=== PATIENT | female | born 1965 | race African-American/Black ===

== ENCOUNTER 2018-01-01 09:59 | Inpatient (IN) | payer MEDICARE, MEDICAID ==
[~2018-01-01] VITALS: Ht 175.3 cm; Wt 75.2 kg
[2018-01-01] MEDS ORDERED: SODIUM CHLORIDE 0.9% 1,000 ML IV ONE ×2 (10:28)
[2018-01-01] MEDS ORDERED: InsuLIN REG 1unit/0.01ml Soln (100units/ml) IV ONE (10:30)
[2018-01-01 10:54] LABS: Urine Bacteria NONE SEEN /hpf (None Seen); Urine Blood TRACE /uL (Negative); Urine WBC 4 /hpf (0 - 5)
[2018-01-01 11:48] LABS: Basophils # (auto) 0 uL; Basophils % (auto) 0.2 % (0.0-2.0); Eosinophils # (auto) 0 uL; Eosinophils % (auto) 0.4 % (0.0-7.0); Hematocrit 36.3 % (36.0-46.0); Hemoglobin 11.9 g/dL (12.2-16.2); Lymphocytes # (auto) 0.6 uL; Lymphocytes % (auto) 16.3 % (10.0-50.0); Mean Corpuscular Hemoglobin 30.6 pg (28.0-32.0); Mean Corpuscular Hgb Conc. 32.8 g/dL (32.0-36.0); Mean Corpuscular Volume 93.3 fL (80.0-100.0); Monocytes # (auto) 0.1 uL; Monocytes % (auto) 3.2 % (0.0-12.0); Neutrophils # (auto) 2.9 uL; Neutrophils % (auto) 79.9 % (37.0-80.0); Platelet Count (auto) 192 10^3/uL (140-450); Red Blood Cells 3.89 10^6/uL (4.0-5.20); White Blood Cell 3.7 10^3/uL (4.4-10.8)
[2018-01-01 11:55] LABS: Red Cell Distribution Width 20.8 % (11.8-14.3)
[2018-01-01 12:03] LABS: INR 0.99 (0.9-1.15); Prothrombin Time 10.6 sec (9.27-12.13)
[2018-01-01 12:22] LABS: Albumin 2.9 g/dL (3.4-5.0); BUN/Creatinine Ratio 17.1; Calcium 10.4 mg/dL (8.5-10.1)
[2018-01-01 12:29] LABS: Bilirubin, Total 0.4 mg/dL (0.2-1.0); Total Protein 6.6 g/dL (6.4-8.2)
[2018-01-01] MEDS ORDERED: InsuLIN R (HUMAN) 100 UNITS in SODIUM CHL 0.9% 99 ML IV SCH (12:35)
[2018-01-01] MEDS ORDERED: TEMAZEPAM 15 MG CAP PO PRN (12:45)
[2018-01-01] MEDS ORDERED: MORPHINE SULFATE 4 MG/ML SYR/VIAL IV PRN ×2 (12:45)
[2018-01-01] MEDS ORDERED: ENOXAPARIN SOD 60 MG/0.6 ML SYRINGE SC ONE (12:45)
[2018-01-01] MEDS ORDERED: LORazepam 0.5 MG TAB PO PRN (12:45)
[2018-01-01] MEDS ORDERED: HYDROcodone-ACET 5/325MG TAB PO PRN (12:45)
[2018-01-01] MEDS ORDERED: DEXTROSE (50%) 50ML SYRG IV PRN ×2 (12:45)
[2018-01-01] MEDS: SOD CHL 0.9%/ KCL 20MEQ 1,000 ML IV SCH ×2 (12:45→21:05)
[2018-01-01] MEDS ORDERED: ONDANSETRON HCL 4 MG/2 ML VIAL IV PRN (12:45)
[2018-01-01] MEDS ORDERED: NITROGLYCERIN 0.4 MG SL TAB SL PRN (12:45)
[2018-01-01] MEDS ORDERED: ACETAMINOPHEN 500 MG TAB PO PRN (12:45)
[2018-01-01] MEDS ORDERED: POTASSIUM CHL 20 Meq TABLET PO ONE (12:45)
[2018-01-01 13:24] LABS: Amylase 32 U/L (25-115); Lipase 172 U/L (73-393)
[2018-01-01] MEDS: ACCU-CHEK COMFORT CURVE STRIP VI SCH ×7 (13:30→22:39)
[2018-01-01 15:28] LABS: Lactic Acid w/Reflex 2.3 mmol/L (0.4-2.0)
[2018-01-02] MEDS: ACCU-CHEK COMFORT CURVE STRIP VI SCH ×10 (00:08→17:51)
[2018-01-02] MEDS ORDERED: InsuLIN R (HUMAN) 100 UNITS in SODIUM CHL 0.9% 99 ML IV SCH (01:38)
[2018-01-02] MEDS: SOD CHL 0.9%/ KCL 20MEQ 1,000 ML IV SCH ×3 (05:06→22:50)
[2018-01-02] MEDS: PANTOPRAZOLE 40 MG TAB PO SCH (09:56)
[2018-01-02 10:19] LABS: Basophils # (auto) 0 uL; Basophils % (auto) 0.3 % (0.0-2.0); Eosinophils # (auto) 0 uL; Eosinophils % (auto) 0.9 % (0.0-7.0); Hematocrit 35.1 % (36.0-46.0); Hemoglobin 11.5 g/dL (12.2-16.2); Lymphocytes # (auto) 1.3 uL; Mean Corpuscular Hemoglobin 29.7 pg (28.0-32.0); Mean Corpuscular Hgb Conc. 32.9 g/dL (32.0-36.0); Mean Corpuscular Volume 90.4 fL (80.0-100.0); Monocytes # (auto) 0.3 uL; Monocytes % (auto) 6.8 % (0.0-12.0); Neutrophils # (auto) 3.4 uL; Platelet Count (auto) 227 10^3/uL (140-450); Red Blood Cells 3.88 10^6/uL (4.0-5.20); White Blood Cell 5.2 10^3/uL (4.4-10.8)
[2018-01-02 10:21] LABS: Red Cell Distribution Width 21.3 % (11.8-14.3)
[2018-01-02 10:29] LABS: Albumin 2.9 g/dL (3.4-5.0); BUN/Creatinine Ratio 23.1; Calcium 10.6 mg/dL (8.5-10.1); Potassium 3.4 mmol/L (3.5-5.1)
[2018-01-02 10:32] LABS: Bilirubin, Total 0.5 mg/dL (0.2-1.0); Total Protein 6.4 g/dL (6.4-8.2)
[2018-01-02] MEDS ORDERED: INSULIN NPH Isophane (HUMAN) 1unit/0.01ml Susp(100units/ml) SC ONE (11:30)
[2018-01-02] MEDS ORDERED: DEXTROSE (50%) 50ML SYRG IV PRN (11:30)
[2018-01-02] MEDS: InsuLIN REG 1unit/0.01ml Soln (100units/ml) SC SCH ×3 (11:57→22:00)
[2018-01-02 12:37] LABS: Free T3 1.84 pg/mL (2.3-4.2); Free T4 (Free Thyroxine) 1.17 ng/dL (0.89-1.76)
[2018-01-02] MEDS ORDERED: CARV3.1240 PO (14:43)
[2018-01-02] MEDS ORDERED: CLON0.2D6 PO (14:43)
[2018-01-02] MEDS ORDERED: ATO40T PO (14:43)
[2018-01-02] MEDS ORDERED: HYDR-4296 PO (14:43)
[2018-01-02] MEDS ORDERED: METO-158 PO (14:43)
[2018-01-02] MEDS ORDERED: FERR-20 PO (14:43)
[2018-01-02] MEDS ORDERED: ASPI81TA27 PO (14:43)
[2018-01-02] MEDS ORDERED: amLODIPine BESYLATE 5 MG TAB PO ONE (15:00)
[2018-01-02] MEDS ORDERED: hydrALAZINE HCL 25 MG TAB PO ONE (15:00)
[2018-01-02 15:24] VITALS: BP 165/105
[2018-01-02 17:00] VITALS: BP 168/93
[2018-01-02] MEDS: cloNIDine HCL 0.1 MG TAB PO PRN (17:53)
[2018-01-02 20:00] VITALS: BP 144/91
[2018-01-02 21:56] VITALS: BP 144/91
[2018-01-02] MEDS: hydrALAZINE HCL 25 MG TAB PO SCH (22:20)
[2018-01-02] MEDS: CARVEDILOL 3.125 MG TAB PO SCH (22:21)
[2018-01-03] MEDS: ACCU-CHEK COMFORT CURVE STRIP VI SCH ×5 (00:35→22:00)
[2018-01-03 05:32] VITALS: BP 139/92
[2018-01-03 07:06] LABS: Basophils # (auto) 0 uL; Basophils % (auto) 0.4 % (0.0-2.0); Eosinophils # (auto) 0 uL; Eosinophils % (auto) 1.1 % (0.0-7.0); Hematocrit 31.9 % (36.0-46.0); Hemoglobin 10.8 g/dL (12.2-16.2); Lymphocytes # (auto) 1.2 uL; Lymphocytes % (auto) 27.4 % (10.0-50.0); Mean Corpuscular Hemoglobin 30.7 pg (28.0-32.0); Mean Corpuscular Hgb Conc. 33.9 g/dL (32.0-36.0); Mean Corpuscular Volume 90.6 fL (80.0-100.0); Monocytes # (auto) 0.4 uL; Monocytes % (auto) 8.9 % (0.0-12.0); Neutrophils # (auto) 2.7 uL; Neutrophils % (auto) 62.2 % (37.0-80.0); Platelet Count (auto) 212 10^3/uL (140-450); Red Blood Cells 3.52 10^6/uL (4.0-5.20); White Blood Cell 4.4 10^3/uL (4.4-10.8)
[2018-01-03] MEDS: InsuLIN REG 1unit/0.01ml Soln (100units/ml) SC SCH ×4 (07:07→22:00)
[2018-01-03] MEDS: hydrALAZINE HCL 25 MG TAB PO SCH ×3 (07:07→22:57)
[2018-01-03 07:23] LABS: Albumin 2.8 g/dL (3.4-5.0); BUN/Creatinine Ratio 23.9; Bilirubin, Direct 0.1 mg/dL (0-0.2); Bilirubin, Total 0.5 mg/dL (0.2-1.0); Magnesium 2.1 mg/dL (1.6-2.6); Total Protein 6.3 g/dL (6.4-8.2)
[2018-01-03 07:24] LABS: Red Cell Distribution Width 21.5 % (11.8-14.3)
[2018-01-03] MEDS: SOD CHL 0.9%/ KCL 20MEQ 1,000 ML IV SCH ×3 (07:40→23:23)
[2018-01-03] MEDS: cloNIDine HCL 0.1 MG TAB PO PRN ×2 (07:41→17:43)
[2018-01-03 09:00] VITALS: BP 176/105
[2018-01-03] MEDS: amLODIPine BESYLATE 5 MG TAB PO SCH (09:41)
[2018-01-03] MEDS: ASPirin 81 mg TAB PO SCH (09:41)
[2018-01-03] MEDS: CARVEDILOL 3.125 MG TAB PO SCH (09:41)
[2018-01-03] MEDS: PANTOPRAZOLE 40 MG TAB PO SCH (09:41)
[2018-01-03] MEDS ORDERED: CARVEDILOL 3.125 MG TAB PO SCH (10:00)
[2018-01-03] MEDS: POTASSIUM CHL 20 Meq TABLET PO SCH ×2 (11:36→22:55)
[2018-01-03] MEDS: LOSARTAN POTASSIUM 50 MG TAB PO SCH ×2 (11:37→22:56)
[2018-01-03 13:00] VITALS: BP 157/101
[2018-01-03 16:59] VITALS: BP 162/103
[2018-01-03 22:00] VITALS: BP 181/101
[2018-01-03] MEDS ORDERED: METOPROLOL TARTRATE 25 MG TAB PO SCH (22:00)
[2018-01-03] MEDS: ATORVASTATIN 20 MG TAB PO SCH (22:56)
[2018-01-04 05:00] VITALS: BP 174/108
[2018-01-04] MEDS: cloNIDine HCL 0.1 MG TAB PO PRN ×2 (05:51→06:11)
[2018-01-04] MEDS: hydrALAZINE HCL 25 MG TAB PO SCH ×3 (06:12→22:11)
[2018-01-04] MEDS: ACCU-CHEK COMFORT CURVE STRIP VI SCH ×4 (07:00→22:00)
[2018-01-04] MEDS: InsuLIN REG 1unit/0.01ml Soln (100units/ml) SC SCH ×4 (07:01→22:00)
[2018-01-04 07:21] LABS: Basophils # (auto) 0 uL; Basophils % (auto) 0.4 % (0.0-2.0); Eosinophils # (auto) 0.1 uL; Eosinophils % (auto) 1.6 % (0.0-7.0); Hematocrit 30.9 % (36.0-46.0); Hemoglobin 10.3 g/dL (12.2-16.2); Lymphocytes # (auto) 1.1 uL; Lymphocytes % (auto) 31.6 % (10.0-50.0); Mean Corpuscular Hemoglobin 30.4 pg (28.0-32.0); Mean Corpuscular Hgb Conc. 33.4 g/dL (32.0-36.0); Monocytes # (auto) 0.4 uL; Monocytes % (auto) 10.7 % (0.0-12.0); Neutrophils # (auto) 1.9 uL; Neutrophils % (auto) 55.7 % (37.0-80.0); Nucleated Red Blood Cells % 0.1 %; Platelet Count (auto) 201 10^3/uL (140-450); Red Blood Cells 3.39 10^6/uL (4.0-5.20); White Blood Cell 3.4 10^3/uL (4.4-10.8)
[2018-01-04 07:25] LABS: Red Cell Distribution Width 21.9 % (11.8-14.3)
[2018-01-04 07:36] LABS: BUN/Creatinine Ratio 21.2; Calcium 10.2 mg/dL (8.5-10.1); Magnesium 1.9 mg/dL (1.6-2.6); Potassium 3.9 mmol/L (3.5-5.1)
[2018-01-04] MEDS ORDERED: LABETALOL HCL 200 MG TAB PO SCH (08:30)
[2018-01-04] MEDS ORDERED: cloNIDine 0.2 mg/24hr 7DAY PATCH TD SCH (08:30)
[2018-01-04 09:00] VITALS: BP 155/96
[2018-01-04] MEDS: SOD CHL 0.9%/ KCL 20MEQ 1,000 ML IV SCH ×2 (09:24→15:45)
[2018-01-04] MEDS: METOPROLOL TARTRATE 25 MG TAB PO SCH ×2 (09:26→22:13)
[2018-01-04] MEDS: amLODIPine BESYLATE 5 MG TAB PO SCH (09:27)
[2018-01-04] MEDS: LOSARTAN POTASSIUM 50 MG TAB PO SCH ×2 (09:27→22:12)
[2018-01-04] MEDS: PANTOPRAZOLE 40 MG TAB PO SCH (09:27)
[2018-01-04] MEDS: ASPirin 81 mg TAB PO SCH (09:28)
[2018-01-04 13:00] VITALS: BP 185/109
[2018-01-04] MEDS ORDERED: MINOXIDIL 10 MG TAB PO ONE (13:30)
[2018-01-04 17:00] VITALS: BP 138/87
[2018-01-04 21:23] VITALS: BP 121/74
[2018-01-04] MEDS ORDERED: MINOXIDIL 10 MG TAB PO SCH (22:00)
[2018-01-04] MEDS: ATORVASTATIN 20 MG TAB PO SCH (22:12)
[2018-01-05] VITALS (7 sets, daily range): BP systolic 93–117; BP diastolic 57–79
[2018-01-05] MEDS: SOD CHL 0.9%/ KCL 20MEQ 1,000 ML IV SCH ×3 (00:05→17:08)
[2018-01-05] MEDS: hydrALAZINE HCL 25 MG TAB PO SCH ×3 (06:00→22:00)
[2018-01-05] MEDS: ACCU-CHEK COMFORT CURVE STRIP VI SCH ×4 (07:05→22:06)
[2018-01-05] MEDS: InsuLIN REG 1unit/0.01ml Soln (100units/ml) SC SCH ×4 (07:06→22:06)
[2018-01-05] MEDS ORDERED: MINOXIDIL 10 MG TAB PO SCH (10:00)
[2018-01-05] MEDS: LOSARTAN POTASSIUM 50 MG TAB PO SCH ×2 (10:00→22:00)
[2018-01-05] MEDS: METOPROLOL TARTRATE 25 MG TAB PO SCH ×2 (10:00→22:00)
[2018-01-05] MEDS: amLODIPine BESYLATE 5 MG TAB PO SCH (10:00)
[2018-01-05] MEDS: PANTOPRAZOLE 40 MG TAB PO SCH (10:00)
[2018-01-05] MEDS: ASPirin 81 mg TAB PO SCH (10:00)
[2018-01-05 10:43] LABS: Basophils # (auto) 0 uL; Basophils % (auto) 0.7 % (0.0-2.0); Eosinophils # (auto) 0 uL; Eosinophils % (auto) 1.1 % (0.0-7.0); Hemoglobin 10.6 g/dL (12.2-16.2); Lymphocytes # (auto) 1.1 uL; Lymphocytes % (auto) 27.5 % (10.0-50.0); Mean Corpuscular Hemoglobin 30.2 pg (28.0-32.0); Mean Corpuscular Hgb Conc. 33.1 g/dL (32.0-36.0); Monocytes # (auto) 0.4 uL; Monocytes % (auto) 10.4 % (0.0-12.0); Neutrophils # (auto) 2.4 uL; Neutrophils % (auto) 60.3 % (37.0-80.0); Nucleated Red Blood Cells % 0.1 %; Platelet Count (auto) 229 10^3/uL (140-450); Red Blood Cells 3.51 10^6/uL (4.0-5.20)
[2018-01-05 11:00] LABS: Potassium 4.5 mmol/L (3.5-5.1)
[2018-01-05] MEDS ORDERED: ADENOSINE 62 MG in GIVE UN-DILUTED 0 ML IV ONE (11:00)
[2018-01-05 11:04] LABS: BUN/Creatinine Ratio 19.5
[2018-01-05] MEDS: metFORMIN HYDROCHLORIDE 500 MG TAB PO SCH ×2 (18:09→18:53)
[2018-01-05] MEDS: glipiZIDE 5 MG TAB PO SCH (18:09)
[2018-01-05] MEDS: ATORVASTATIN 20 MG TAB PO SCH (22:42)
[2018-01-06] MEDS: SOD CHL 0.9%/ KCL 20MEQ 1,000 ML IV SCH ×2 (01:05→09:25)
[2018-01-06 05:00] VITALS: BP 109/61
[2018-01-06] MEDS: hydrALAZINE HCL 25 MG TAB PO SCH ×2 (06:00→14:00)
[2018-01-06] MEDS: ACCU-CHEK COMFORT CURVE STRIP VI SCH ×2 (07:26→11:30)
[2018-01-06] MEDS: InsuLIN REG 1unit/0.01ml Soln (100units/ml) SC SCH ×2 (07:27→11:30)
[2018-01-06] MEDS: metFORMIN HYDROCHLORIDE 500 MG TAB PO SCH (07:28)
[2018-01-06] MEDS: glipiZIDE 5 MG TAB PO SCH (07:28)
[2018-01-06 08:22] LABS: Basophils # (auto) 0 uL; Basophils % (auto) 0.5 % (0.0-2.0); Eosinophils # (auto) 0 uL; Eosinophils % (auto) 0.9 % (0.0-7.0); Hematocrit 32.7 % (36.0-46.0); Hemoglobin 10.7 g/dL (12.2-16.2); Lymphocytes # (auto) 1.2 uL; Lymphocytes % (auto) 30.8 % (10.0-50.0); Mean Corpuscular Hemoglobin 30.5 pg (28.0-32.0); Mean Corpuscular Hgb Conc. 32.7 g/dL (32.0-36.0); Mean Corpuscular Volume 93.1 fL (80.0-100.0); Monocytes # (auto) 0.4 uL; Monocytes % (auto) 10.2 % (0.0-12.0); Neutrophils # (auto) 2.3 uL; Neutrophils % (auto) 57.6 % (37.0-80.0); Platelet Count (auto) 228 10^3/uL (140-450); Red Blood Cells 3.51 10^6/uL (4.0-5.20)
[2018-01-06 08:27] LABS: Red Cell Distribution Width 22.2 % (11.8-14.3)
[2018-01-06 08:43] LABS: BUN/Creatinine Ratio 20.4; Potassium 4.7 mmol/L (3.5-5.1)
[2018-01-06 09:00] VITALS: BP 132/81
[2018-01-06] MEDS: amLODIPine BESYLATE 5 MG TAB PO SCH (10:05)
[2018-01-06] MEDS: ASPirin 81 mg TAB PO SCH (10:05)
[2018-01-06] MEDS: LOSARTAN POTASSIUM 50 MG TAB PO SCH (10:06)
[2018-01-06] MEDS: PANTOPRAZOLE 40 MG TAB PO SCH (10:07)
[2018-01-06] MEDS: METOPROLOL TARTRATE 25 MG TAB PO SCH (10:07)
[2018-01-06 11:19] VITALS: BP 132/81
[2018-01-06 11:43] VITALS: BP 132/81
[2018-01-06 13:00] VITALS: BP 122/67
== END 2018-01-06 13:45 | disposition home or self-care (01) | DRG 280 ==
LOC: ER 09:59 → TELE 10:00 → TELE-EAST 01-02 13:52
PROVIDERS: ADMIT Internal Medicine; ATTEND Internal Medicine Pulmonary Disease
DX: I21.4 Non-ST elevation (NSTEMI) myocardial infarction (principal); E11.00 Type 2 diabetes mellitus with hyperosmolarity without nonketotic hyperglycemic-hyperosmolar coma (NKHHC); N17.0 Acute kidney failure with tubular necrosis; E87.1 Hypo-osmolality and hyponatremia; E44.0 Moderate protein-calorie malnutrition; I13.0 Hypertensive heart and chronic kidney disease with heart failure and stage 1 through stage 4 chronic kidney disease, or unspecified chronic kidney disease; E87.6 Hypokalemia; E11.22 Type 2 diabetes mellitus with diabetic chronic kidney disease; N18.2 Chronic kidney disease, stage 2 (mild); D63.8 Anemia in other chronic diseases classified elsewhere; I12.9 Hypertensive chronic kidney disease with stage 1 through stage 4 chronic kidney disease, or unspecified chronic kidney disease; E11.65 Type 2 diabetes mellitus with hyperglycemia; D25.9 Leiomyoma of uterus, unspecified; E21.3 Hyperparathyroidism, unspecified; I50.9 Heart failure, unspecified; R56.9 Unspecified convulsions; Z86.73 Personal history of transient ischemic attack (TIA), and cerebral infarction without residual deficits; Z83.3 Family history of diabetes mellitus; Z68.24 Body mass index [BMI] 24.0-24.9, adult
CPT/HCPCS: 36415; 71045; 74176; 78452; 80048; 80053; 80061; 80076; 81001; 81025; 82150; 82550; 82553; 82962; 83036; 83605; 83690; 83735; 83835; 83880; 83970; 84439; 84443; 84481; 84484; 85025; 85610; 85730; 87040; 93306; 96361; 96365; 96375; J0153; J1815

== ENCOUNTER 2018-06-16 12:55 | Inpatient (IN) | payer MEDICARE, MEDICAID | END 2018-06-19 22:42 | disposition home or self-care (01) | LOC: TELE-EAST 06-18 14:18 → ER 12:55 → TELE 17:10 | DX: I16.9 Hypertensive crisis, unspecified (principal); E87.1 Hypo-osmolality and hyponatremia; E11.65 Type 2 diabetes mellitus with hyperglycemia; E87.6 Hypokalemia; E87.8 Other disorders of electrolyte and fluid balance, not elsewhere classified; D63.8 Anemia in other chronic diseases classified elsewhere; I25.10 Atherosclerotic heart disease of native coronary artery without angina pectoris ==

== ENCOUNTER 2018-06-30 10:38 | Inpatient (IN) | payer MEDICARE, MEDICAID | END 2018-07-04 20:01 | disposition home or self-care (01) | LOC: EAST 07-03 14:29 → TELE-EAST 07-03 14:30 → ER 10:38 → TELE 13:03 → TELE-EAST 17:09 | DX: I16.0 Hypertensive urgency (principal); D64.9 Anemia, unspecified; E11.65 Type 2 diabetes mellitus with hyperglycemia; E78.5 Hyperlipidemia, unspecified; E03.9 Hypothyroidism, unspecified ==

== ENCOUNTER 2018-08-18 13:07 | Emergency (ER) | payer MEDICARE, MEDICAID ==
[~2018-08-18] VITALS: Ht 175.3 cm; Wt 66.2 kg
[~2018-08-18 13:07] MED LIST: ALIS150T11 PO; AMLO10TA12 PO; ATOR1TAB PO; CARV3.1240 PO; CLON0.1T PO; HYDR-4296 PO; METF-370 PO
[2018-08-18 14:02] LABS: Basophils # (auto) 0 uL; Basophils % (auto) 0.7 % (0.0-2.0); Eosinophils # (auto) 0.1 uL; Eosinophils % (auto) 2.2 % (0.0-7.0); Hematocrit 30.7 % (36.0-46.0); Hemoglobin 9.9 g/dL (12.2-16.2); Lymphocytes # (auto) 0.7 uL; Lymphocytes % (auto) 24.2 % (10.0-50.0); Mean Corpuscular Hemoglobin 27.1 pg (28.0-32.0); Mean Corpuscular Hgb Conc. 32.2 g/dL (32.0-36.0); Mean Corpuscular Volume 84.2 fL (80.0-100.0); Monocytes # (auto) 0.3 uL; Monocytes % (auto) 10.1 % (0.0-12.0); Neutrophils # (auto) 1.9 uL; Neutrophils % (auto) 62.8 % (37.0-80.0); Platelet Count (auto) 160 10^3/uL (140-450); Red Blood Cells 3.64 10^6/uL (4.0-5.20); Red Cell Distribution Width 16.8 % (11.8-14.3)
[2018-08-18 14:13] LABS: Albumin 3.5 g/dL (3.4-5.0); Anion Gap 7 (5-15); Blood Urea Nitrogen 19 mg/dL (7-18); Calcium 12.3 mg/dL (8.5-10.1); Carbon Dioxide 27 mmol/L (21-32); Chloride 105 mmol/L (98-107); Glucose 218 mg/dL (74-106); Potassium 3.1 mmol/L (3.5-5.1); Sodium 139 mmol/L (136-145)
[2018-08-18 14:18] LABS: Alanine Aminotransferase 26 U/L (13-56); Alkaline Phosphatase 105 U/L (45-117); Aspartate Aminotransferase 18 U/L (15-37); BUN/Creatinine Ratio 13.9; Bilirubin, Total 0.3 mg/dL (0.2-1.0); GFR African American 52 mL/min; GFR Non-African American 43 mL/min; Total Protein 7.5 g/dL (6.4-8.2)
[2018-08-18] MEDS ORDERED: cloNIDine HCL 0.1 MG TAB ONE (16:56)
[2018-08-18] MEDS ORDERED: cloNIDine HCL 0.1 MG TAB PO ONE (17:00)
[2018-08-18 17:29] VITALS: BP 170/90
== END 2018-08-18 17:39 | disposition home or self-care (01) ==
LOC: ER 13:11
DX: I16.0 Hypertensive urgency (principal); E11.9 Type 2 diabetes mellitus without complications; E78.5 Hyperlipidemia, unspecified; I10 Essential (primary) hypertension; E07.9 Disorder of thyroid, unspecified; Z79.84 Long term (current) use of oral hypoglycemic drugs; Z79.899 Other long term (current) drug therapy; Z86.73 Personal history of transient ischemic attack (TIA), and cerebral infarction without residual deficits
CPT/HCPCS: 36415; 80053; 82962; 84484; 85025; 93005

== ENCOUNTER 2018-10-30 17:16 | Inpatient (IN) | payer OTHER, MEDICAID ==
[~2018-10-30] VITALS: Ht 175.3 cm; Wt 72.0 kg
[~2018-10-30 17:16] MED LIST changes: +ALIS150T PO; -ALIS150T11 PO; -AMLO10TA12 PO; +AMLO10TA13 PO
[2018-10-30] MEDS ORDERED: cloNIDine HCL 0.1 MG TAB PO ONE (17:30)
[2018-10-30 18:11] LABS: Basophils # (auto) 0 uL; Eosinophils # (auto) 0 uL; Lymphocytes # (auto) 0.9 uL; Monocytes # (auto) 0.4 uL; Monocytes % (auto) 12.3 % (0.0-12.0)
[2018-10-30 18:14] LABS: Basophils % (auto) 0.3 % (0.0-2.0); Eosinophils % (auto) 1.3 % (0.0-7.0); Hematocrit 34.3 % (36.0-46.0); Lymphocytes % (auto) 26.9 % (10.0-50.0); Mean Corpuscular Hemoglobin 26.5 pg (28.0-32.0); Mean Corpuscular Volume 82.8 fL (80.0-100.0); Neutrophils % (auto) 59.2 % (37.0-80.0); Nucleated Red Blood Cells % 0.2 %; Platelet Count (auto) 167 10^3/uL (140-450); Red Blood Cells 4.15 10^6/uL (4.0-5.20); Red Cell Distribution Width 19.4 % (11.8-14.3); White Blood Cell 3.5 10^3/uL (4.4-10.8)
[2018-10-30 18:30] LABS: Albumin 3.3 g/dL (3.4-5.0); Calcium 12.4 mg/dL (8.5-10.1); Potassium 3.3 mmol/L (3.5-5.1)
[2018-10-30 18:34] LABS: BUN/Creatinine Ratio 12.3; Bilirubin, Total 0.4 mg/dL (0.2-1.0); Total Protein 7.7 g/dL (6.4-8.2)
[2018-10-30] MEDS ORDERED: InsuLIN REG 1unit/0.01ml Soln (100units/ml) SC ONE (22:00)
[2018-10-30] MEDS ORDERED: POTASSIUM CHL 20 Meq TABLET PO ONE (23:00)
[2018-10-30] MEDS ORDERED: MORPHINE SULF INJ 2 MG/ML SYRINGE 1ML IV PRN ×3 (23:15→23:45)
[2018-10-30] MEDS ORDERED: NITROGLYCERIN 0.4 MG SL TAB SL PRN (23:15)
[2018-10-30] MEDS ORDERED: ONDANSETRON HCL 4 MG/2 ML VIAL IV PRN (23:30)
[2018-10-30] MEDS ORDERED: DEXTROSE (50%) 50ML SYRG IV PRN (23:45)
[2018-10-30 23:47] VITALS: BP 140/93
[2018-10-31] MEDS ORDERED: InsuLIN REG 1unit/0.01ml Soln (100units/ml) SC SCH ×3 (07:00→22:00)
[2018-10-31 07:20] LABS: Albumin 2.8 g/dL (3.4-5.0); Calcium 11.3 mg/dL (8.5-10.1); Potassium 3.1 mmol/L (3.5-5.1)
[2018-10-31 07:25] LABS: Bilirubin, Total 0.5 mg/dL (0.2-1.0); Total Protein 6.3 g/dL (6.4-8.2)
[2018-10-31 07:32] LABS: Basophils # (auto) 0 uL; Monocytes # (auto) 0.3 uL; Red Cell Distribution Width 19.3 % (11.8-14.3); White Blood Cell 3.8 10^3/uL (4.4-10.8)
[2018-10-31 07:34] LABS: Basophils % (auto) 0.8 % (0.0-2.0); Eosinophils # (auto) 0 uL; Hematocrit 31.9 % (36.0-46.0); Hemoglobin 10.2 g/dL (12.2-16.2); Lymphocytes # (auto) 0.9 uL; Lymphocytes % (auto) 23.2 % (10.0-50.0); Mean Corpuscular Hemoglobin 26.3 pg (28.0-32.0); Mean Corpuscular Hgb Conc. 32.1 g/dL (32.0-36.0); Mean Corpuscular Volume 81.9 fL (80.0-100.0); Monocytes % (auto) 8.6 % (0.0-12.0); Neutrophils # (auto) 2.6 uL; Neutrophils % (auto) 66.4 % (37.0-80.0); Platelet Count (auto) 158 10^3/uL (140-450); Red Blood Cells 3.89 10^6/uL (4.0-5.20)
[2018-10-31] MEDS: ACCU-CHEK COMFORT CURVE STRIP VI SCH ×4 (07:39→22:55)
[2018-10-31] MEDS: InsuLIN REG 1unit/0.01ml Soln (100units/ml) SC SCH ×4 (08:16→22:54)
[2018-10-31 09:00] VITALS: BP 160/102
[2018-10-31] MEDS: CARVEDILOL 3.125 MG TAB PO SCH (10:53)
[2018-10-31] MEDS: TRIAMTERENE/HCTZ 75/50MG TABLET PO SCH (10:53)
[2018-10-31] MEDS: amLODIPine BESYLATE 5 MG TAB PO SCH (10:54)
[2018-10-31] MEDS: hydrALAZINE HCL 20 MG/ML VL IV PRN ×2 (12:45→23:02)
[2018-10-31 13:17] VITALS: BP 164/99
[2018-10-31 13:40] VITALS: BP 158/91
[2018-10-31] MEDS ORDERED: SITA100T7 PO (13:44)
[2018-10-31] MEDS ORDERED: TRIATAB3 PO (13:44)
[2018-10-31] MEDS ORDERED: CAR125T PO (13:44)
[2018-10-31] MEDS ORDERED: METF-372 PO (13:49)
[2018-10-31 16:38] VITALS: BP 135/80
[2018-10-31 22:00] VITALS: BP 164/102
[2018-10-31] MEDS: ATORVASTATIN 20 MG TAB PO SCH (22:54)
[2018-11-01] MEDS: ALBUTEROL SULF 2.5 MG/0.5ML(0.5%) NEB SOLN NEB PRN ×2 (03:48→08:49)
[2018-11-01 05:00] VITALS: BP 153/88
[2018-11-01] MEDS: InsuLIN REG 1unit/0.01ml Soln (100units/ml) SC SCH ×5 (06:51→22:47)
[2018-11-01] MEDS: ACCU-CHEK COMFORT CURVE STRIP VI SCH ×4 (06:51→22:47)
[2018-11-01 08:28] VITALS: BP 167/105
[2018-11-01] MEDS: CARVEDILOL 3.125 MG TAB PO SCH (09:40)
[2018-11-01] MEDS: TRIAMTERENE/HCTZ 75/50MG TABLET PO SCH (09:40)
[2018-11-01] MEDS: amLODIPine BESYLATE 5 MG TAB PO SCH (09:41)
[2018-11-01 12:00] VITALS: BP 178/102
[2018-11-01] MEDS: hydrALAZINE HCL 20 MG/ML VL IV PRN (12:37)
[2018-11-01 13:00] VITALS: BP 194/113
[2018-11-01 17:22] VITALS: BP 153/87
[2018-11-01 22:00] VITALS: BP 149/95
[2018-11-01] MEDS: ATORVASTATIN 20 MG TAB PO SCH (22:46)
[2018-11-01] MEDS: ACETAMINOPHEN 500 MG TAB PO PRN (22:48)
[2018-11-02] VITALS (7 sets, daily range): BP systolic 133–189; BP diastolic 76–109
[2018-11-02] MEDS: ACCU-CHEK COMFORT CURVE STRIP VI SCH ×4 (06:19→21:42)
[2018-11-02] MEDS: InsuLIN REG 1unit/0.01ml Soln (100units/ml) SC SCH ×4 (06:19→21:42)
[2018-11-02] MEDS: hydrALAZINE HCL 20 MG/ML VL IV PRN ×2 (06:20→12:47)
[2018-11-02] MEDS: TRIAMTERENE/HCTZ 75/50MG TABLET PO SCH (09:30)
[2018-11-02] MEDS: CARVEDILOL 3.125 MG TAB PO SCH (09:30)
[2018-11-02] MEDS: amLODIPine BESYLATE 5 MG TAB PO SCH (09:31)
[2018-11-02] MEDS: ACETAMINOPHEN 500 MG TAB PO PRN (10:18)
[2018-11-02] MEDS: ATORVASTATIN 20 MG TAB PO SCH (21:30)
[2018-11-03] VITALS (8 sets, daily range): BP systolic 139–178; BP diastolic 85–107
[2018-11-03] MEDS: ACCU-CHEK COMFORT CURVE STRIP VI SCH ×4 (06:54→21:18)
[2018-11-03] MEDS: InsuLIN REG 1unit/0.01ml Soln (100units/ml) SC SCH ×4 (06:54→21:18)
[2018-11-03] MEDS: hydrALAZINE HCL 20 MG/ML VL IV PRN ×2 (08:37→22:09)
[2018-11-03] MEDS: CARVEDILOL 12.5 MG TAB PO SCH (09:48)
[2018-11-03] MEDS: amLODIPine BESYLATE 5 MG TAB PO SCH (09:48)
[2018-11-03] MEDS: TRIAMTERENE/HCTZ 75/50MG TABLET PO SCH (09:48)
[2018-11-03] MEDS: ALBUTEROL SULF 2.5 MG/0.5ML(0.5%) NEB SOLN NEB PRN (10:24)
[2018-11-03] MEDS: ATORVASTATIN 20 MG TAB PO SCH (21:18)
[2018-11-04 05:00] VITALS: BP 145/75
[2018-11-04] MEDS: ACCU-CHEK COMFORT CURVE STRIP VI SCH ×2 (06:32→11:30)
[2018-11-04] MEDS: InsuLIN REG 1unit/0.01ml Soln (100units/ml) SC SCH ×2 (06:32→12:14)
[2018-11-04 09:00] VITALS: BP 160/89
[2018-11-04] MEDS: TRIAMTERENE/HCTZ 75/50MG TABLET PO SCH (09:31)
[2018-11-04] MEDS: amLODIPine BESYLATE 5 MG TAB PO SCH (09:32)
[2018-11-04] MEDS: CARVEDILOL 12.5 MG TAB PO SCH (09:33)
[2018-11-04] MEDS: hydrALAZINE HCL 20 MG/ML VL IV PRN (10:54)
[2018-11-04 13:00] VITALS: BP 158/89
[2018-11-04 17:00] VITALS: BP 123/80
== END 2018-11-04 18:30 | disposition home or self-care (01) | DRG 638 ==
LOC: ER 17:16 → TELE 17:17 → TELE-CENTR 10-31 09:51
PROVIDERS: ADMIT Internal Medicine; ATTEND Internal Medicine
DX: E11.65 Type 2 diabetes mellitus with hyperglycemia (principal); I16.9 Hypertensive crisis, unspecified; N18.3 Chronic kidney disease, stage 3 (moderate); G40.909 Epilepsy, unspecified, not intractable, without status epilepticus; D64.9 Anemia, unspecified; E87.6 Hypokalemia; E11.22 Type 2 diabetes mellitus with diabetic chronic kidney disease; E11.40 Type 2 diabetes mellitus with diabetic neuropathy, unspecified; I12.9 Hypertensive chronic kidney disease with stage 1 through stage 4 chronic kidney disease, or unspecified chronic kidney disease; E03.9 Hypothyroidism, unspecified; Z83.49 Family history of other endocrine, nutritional and metabolic diseases; E78.5 Hyperlipidemia, unspecified; I13.10 Hypertensive heart and chronic kidney disease without heart failure, with stage 1 through stage 4 chronic kidney disease, or unspecified chronic kidney disease; Z82.3 Family history of stroke; Z82.49 Family history of ischemic heart disease and other diseases of the circulatory system; Z82.5 Family history of asthma and other chronic lower respiratory diseases; Z83.3 Family history of diabetes mellitus; Z86.73 Personal history of transient ischemic attack (TIA), and cerebral infarction without residual deficits
CPT/HCPCS: 36415; 71045; 80053; 82962; 83735; 84484; 85025; 94640; G0378; J1815

== ENCOUNTER 2019-01-11 17:45 | Inpatient (IN) | payer OTHER, MEDICAID ==
[~2019-01-11] VITALS: Ht 175.3 cm; Wt 87.2 kg
[~2019-01-11 17:45] MED LIST changes: +CAR125T PO; -CARV3.1240 PO; -CLON0.1T PO; -HYDR-4296 PO; -METF-370 PO; +METF-372 PO; +SITA100T7 PO; +TRIATAB3 PO
[2019-01-11] MEDS ORDERED: SODIUM CHLORIDE 0.9% 500 ML IVB ONE (18:14)
[2019-01-11] MEDS ORDERED: LORazepam 2MG/ML-1ML VIAL IV ONE ×2 (18:15→18:30)
[2019-01-11] MEDS ORDERED: LORazepam 2MG/ML-1ML VIAL ONE (18:16)
[2019-01-11] MEDS ORDERED: LEVETIRACETAM INJ 1,000 MG in D5W 5% 100 ML IV ONE (18:30)
[2019-01-11 18:37] LABS: Basophils # (auto) 0 uL; Basophils % (auto) 0.1 % (0.0-2.0); Eosinophils # (auto) 0 uL; Hemoglobin 12.2 g/dL (12.2-16.2); Monocytes # (auto) 0.7 uL
[2019-01-11 18:39] LABS: Eosinophils % (auto) 0.1 % (0.0-7.0); Hematocrit 38.1 % (36.0-46.0); Lymphocytes # (auto) 0.6 uL; Lymphocytes % (auto) 7.2 % (10.0-50.0); Mean Corpuscular Hemoglobin 26.4 pg (28.0-32.0); Mean Corpuscular Volume 82.4 fL (80.0-100.0); Monocytes % (auto) 7.4 % (0.0-12.0); Neutrophils # (auto) 7.6 uL; Neutrophils % (auto) 85.2 % (37.0-80.0); Platelet Count (auto) 213 10^3/uL (140-450); Red Blood Cells 4.62 10^6/uL (4.0-5.20); Red Cell Distribution Width 18.3 % (11.8-14.3); White Blood Cell 8.9 10^3/uL (4.4-10.8)
[2019-01-11 18:52] LABS: Albumin 3.5 g/dL (3.4-5.0); BUN/Creatinine Ratio 12.8; Calcium 12.4 mg/dL (8.5-10.1)
[2019-01-11 18:55] LABS: Bilirubin, Total 0.4 mg/dL (0.2-1.0); Total Protein 8.3 g/dL (6.4-8.2)
[2019-01-11] MEDS ORDERED: LEVETIRACETAM 500 MG/5ML INJ IV ONE (20:44)
[2019-01-11] MEDS ORDERED: hydrALAZINE HCL 20 MG/ML VL IV ONE (20:45)
[2019-01-11] MEDS ORDERED: DEXTROSE (50%) 50ML SYRG IV PRN (22:15)
[2019-01-11] MEDS: SODIUM CHLORIDE 0.9% 1,000 ML IV SCH (23:00)
[2019-01-12] VITALS (46 sets, daily range): BP systolic 57–196; BP diastolic 29–104
[2019-01-12] MEDS ORDERED: LORazepam 2MG/ML-1ML VIAL IV ONE
[2019-01-12 01:12] LABS: Urine Amorphous Crystal FEW /hpf (None Seen); Urine Bacteria FEW /hpf (None Seen); Urine Blood TRACE /uL (Negative); Urine Hyaline Cast FEW /lpf (0 - 2); Urine Specific Gravity 1.015 (1.001-1.035); Urine WBC 3 /hpf (0 - 5)
[2019-01-12] MEDS: hydrALAZINE HCL 20 MG/ML VL IV SCH ×4 (02:40→14:00)
[2019-01-12] MEDS: ONDANSETRON HCL 4 MG/2 ML VIAL IV SCH ×3 (03:45→10:00)
[2019-01-12] MEDS ORDERED: SUCCINYLCHOLINE CHLORIDE 20 MG/ML 10ML VIAL IV ONE ×2 (06:15→06:17)
[2019-01-12] MEDS ORDERED: ETOMIDATE (2MG/ML) 20ML VIAL IV ONE ×2 (06:15→06:18)
[2019-01-12] MEDS ORDERED: cefTRIAXone 1GM/50ML D5W 50 ML IV ONE ×2 (07:04→07:15)
--- NOTE | 2019-01-12 07:19 | NUR ---
ADMIT TRANSPORTED PT FROM ER 12 TO ICU RM 111 WITH RT X2, RN X2. PLACED ON ALL MONITORS, SEIZURE PADS APPLIED.
[2019-01-12] MEDS: InsuLIN REG 1unit/0.01ml Soln (100units/ml) SC SCH ×4 (07:30→21:52)
[2019-01-12] MEDS: ACCU-CHEK COMFORT CURVE STRIP VI SCH ×4 (07:30→21:52)
[2019-01-12] MEDS: amLODIPine BESYLATE 5 MG TAB PO SCH ×2 (08:00→10:00)
[2019-01-12] MEDS: MIDAZOLAM DRIP 50 mg/50mL 50 ML IV SCH (08:00)
--- NOTE | 2019-01-12 08:00 | NUR ---
ASSESS DONE NO EYE OPENING. WITHDRAWS TO PAINFUL STIMULI, POS COUGH REFLEX. CATINA AT 3MM SLUGGISH. VENT SETTINGS ORDERED WITH APPROPRIATE TITRATION OF FIO2. SR/SB ON MONITOR. #18 NG SECURE LT NARE, CLAMPED. BP STABLE, NO PRN'S NECESSARY. DR. JOHNSON IS HERE FOR NEURO CONSULT. LUNGS CLEAR, INTERMITTENTLY COURSE. SKIN IS INTACT.
[2019-01-12] MEDS ORDERED: LORazepam 2MG/ML-1ML VIAL IV PRN (08:30)
[2019-01-12 08:55] LABS: Alcohol, Urine < 3.0 mg/dL (0-5); Amphetamine Screen, Urine NEGATIVE (NEGATIVE); Barbiturate Scree,Urine NEGATIVE (NEGATIVE); Benzodiazephine Screen, Urine NEGATIVE (NEGATIVE); Cannabinoid Screen, Urine NEGATIVE (NEGATIVE); Cocaine Screen, Urine NEGATIVE (NEGATIVE); Opiate Scree,Urine NEGATIVE (NEGATIVE); Phencyclidine Screen, Urine NEGATIVE (NEGATIVE)
--- NOTE | 2019-01-12 09:00 | NUR ---
PT BRADYCARDIC ON MONIOTR, DOWN TO 40. FOUND TO HAVE HAD SMALL EMESIS, BRIGHT GREEN IN COLOR. PLACED TO CONT SUCTION, NO ASPIRATION NOTED. NO CHANGE IN NEURO ASSESSMENT
[2019-01-12] MEDS: FAMOTIDINE (10MG/ML) 2ML VL IV SCH ×2 (10:00→22:09)
[2019-01-12] MEDS: ASPirin 81 mg TAB PO SCH (10:00)
[2019-01-12] MEDS: SODIUM CHLORIDE 0.9% 1,000 ML IV SCH ×2 (10:00→19:00)
[2019-01-12] MEDS: CARVEDILOL 12.5 MG TAB PO SCH ×2 (10:00→22:08)
--- NOTE | 2019-01-12 10:30 | NUR ---
TEMP IS DROPPING. DENIS SWANSON PLACED ON PT.
--- NOTE | 2019-01-12 11:15 | NUR ---
BP DROPPING.BOLUS NS 500ML HUNG. NEURO ASSESSMENT HAS CHANGED. PT IS NO LONGER RESPONSIVE TO ALL STIMULI, NO COUGH OR GAG REFLEXES
--- NOTE | 2019-01-12 11:45 | NUR ---
BOLUS UNSUCCESSFUL. DR. RODGERS NOTIFIED OF CHANGES, ORDERS REC'D. LEVOPHED STARTED.
[2019-01-12] MEDS: LEVETIRACETAM INJ 1,000 MG in D5W 5% 100 ML IV SCH ×2 (11:50→22:09)
[2019-01-12] MEDS: ENOXAPARIN SOD 30 MG/0.3 ML SYRINGE SC SCH (12:00)
[2019-01-12] MEDS: NOREPINEPHRINE 8 MG/250ML KIT 250 ML IV SCH (12:00)
[2019-01-12] MEDS ORDERED: NOREPINEPHRINE 8 MG/250ML KIT 250 ML IV ONE (12:03)
--- NOTE | 2019-01-12 12:15 | NUR ---
RUEL HEALY'Tory. DR. RODGERS IS HERE. ORDERS REC'D.
[2019-01-12] MEDS ORDERED: DEXTROSE 50% SYRINGE 50 ML IV ONE (12:19)
[2019-01-12] MEDS ORDERED: VANCOMYCIN PER PHARMACY 0 MG IV SCH (12:30)
[2019-01-12] MEDS ORDERED: VANCOMYCIN 1GM/250ML 250 ML IV ONE ×2 (12:30→12:35)
[2019-01-12] MEDS ORDERED: PIPERACILLIN-TAZOB 3.375GM 100 ML IV ONE (12:35)
[2019-01-12] MEDS ORDERED: DEXTROSE (50%) 50ML SYRG IV ONE (12:45)
--- NOTE | 2019-01-12 12:55 | NUR ---
ELECTROENCEPHALOGRAM COMPLETED AT BEDSIDE. ELLIOT CARTER NOTIFIED.
[2019-01-12] MEDS ORDERED: DEXTROSE 10% 1,000 ML IV ONE ×2 (13:16→16:00)
--- NOTE | 2019-01-12 13:20 | NUR ---
TAKEN TO RADIOLOGY WITH RN X2, RT X2
--- NOTE | 2019-01-12 13:25 | NUR ---
RT Transport Note: Patient transported to {CT} with RN {EMMA Martinez}. Patient transported to and from procedure on ventilator with previous ordered settings. Patient on emergency room doctor with alarms set and audible, ambu-bag/mask connected to 02 tank. Patient returned to room with no adverse reaction noted. Transport completed without incident.
--- NOTE | 2019-01-12 13:45 | NUR ---
RETURNED TO BED 111. ACCDAMIEN DONE-83
--- NOTE | 2019-01-12 14:30 | NUR ---
ACCUCHECK BS IS 82 AT THIS TIME. D10 CONTINUES AT 50 ML/HR
--- NOTE | 2019-01-12 15:54 | NUR ---
Assessment Pt is a 53 yr old intubated female. No family bedside during both SW visits. There is no contact lens curve grinder in pt's file. SW will assess for pt's needs closer to d/c. Addendum: 01/12/19 at 1559 by KIARA ACUÑA SS Amended: Links added.
--- NOTE | 2019-01-12 16:00 | NUR ---
ACCUCHECK 109
--- NOTE | 2019-01-12 17:04 | NUR ---
DR. BENZ IN FOR PULM CONSULT
[2019-01-12] MEDS: PIPERACILLIN-TAZOB 3.375GM 100 ML IV SCH (18:00)
[2019-01-12] MEDS: D5W/SOD CHL 0.45% 1,000 ML IV SCH (19:00)
--- NOTE | 2019-01-12 19:10 | NUR ---
OPENING ASSUMED CARE OF PATIENT INTUBATED AND NOT SEDATED. PUPILS 3 AND REACTIVE TO LIGHT, WITHDRAWALS TO TACTILE STIMULATION, OTHERWISE NON RESPONSIVE. SR ON CYCLE ANALYST. TOLERATING THE VENTILATOR, RESPIRATIONS EVEN AND UNLABORED, NO S/S OR RESPIRATORY DISTRESS NOTED. NG TUBE TO LEFT NARE AUSCULTATED FOR PLACEMENT. ABD SOFT AND ROUND, BOWEL SOUNDS PRESENT. RAC 18 G RUNNING FLUIDS, PATENT AND INTACT. LH 20 G SALINE FLUSHED, INTACT, PATENT, AND SL. LFA 20G SALINE FLUSHED, PATENT, INTACT, AND SL. SKIN INTACT WITH OPTIFOAM GENTLE DRESSING APPLIED TO SACRAL AREA. NO PAIN OBSERVED. BED IN LOWEST LOCKED POSITION. IN FULL VIEW OF NURSES STATION. WILL CONTINUE TO MONITOR
[2019-01-12] MEDS ORDERED: ATORVASTATIN 20 MG TAB PO SCH (20:00)
--- NOTE | 2019-01-12 20:10 | NUR ---
FAMILY AT BEDSIDE UPDATED ON PATIENT STATUS AND PLAN. ALL QUESTIONS AND CONCERNS ANSWERED AT THIS TIME, VERBALIZED UNDERSTANDING.
[2019-01-12] MEDS: ATORVASTATIN 20 MG TAB PO SCH (22:09)
[2019-01-13] VITALS (101 sets, daily range): BP systolic 100–161; BP diastolic 67–102
[2019-01-13] MEDS: PIPERACILLIN-TAZOB 3.375GM 100 ML IV SCH ×5 (00:22→23:42)
--- NOTE | 2019-01-13 00:30 | NUR ---
FULL BED BATH AND LINEN CHANGE DONE AT THIS TIME. SKIN ASSESSED FOR ANY CHANGES. CLEANED WITH HCG WIPES. TOLERATED WELL. VSS. WILL CONTINUE TO MONITOR.
[2019-01-13] MEDS: MIDAZOLAM DRIP 50 mg/50mL 50 ML IV SCH (06:13)
[2019-01-13] MEDS: ACCU-CHEK COMFORT CURVE STRIP VI SCH ×4 (06:31→21:33)
[2019-01-13] MEDS: InsuLIN REG 1unit/0.01ml Soln (100units/ml) SC SCH ×4 (07:00→21:33)
--- NOTE | 2019-01-13 07:50 | NUR ---
MD Dr. Wei at bedside updated on patient condition with no new orders received. aware of CT of head from yesterday. Will continue plan of care.
--- NOTE | 2019-01-13 08:00 | NUR ---
OPENING NOTE Received patient on mechanical ventilator with no sedation. Patient does not open eyes to tactile/verbal stimuli, does not follow commands, moves left upper arm to chest, pupils reactive to light and withdrawals to pain, NO gag reflex. Sinus rhythm in the 70's on bedside monitor, pulses palpable on upper/lower extremities and edema observed to lower extremities. NG tube checked and verified via air bolus: clamped. Abdomen soft, non tender, distended with bowel sounds present. Heller catheter draining to gravity draining yellow urine. IV to the right AC 20G, left hand 20g and left forearm 20g: good blood return and flushes easily infusing D5.45 at 75ml/hr. Skin intact. Call light within reach and bed at lowest position. Will continue to monitor patient closely.
[2019-01-13 08:22] LABS: Basophils # (auto) 0 uL; Basophils % (auto) 0.2 % (0.0-2.0); Eosinophils # (auto) 0 uL; Eosinophils % (auto) 0.2 % (0.0-7.0); Neutrophils # (auto) 6.8 uL
[2019-01-13 08:24] LABS: Hematocrit 30.7 % (36.0-46.0); Hemoglobin 10.1 g/dL (12.2-16.2); Lymphocytes # (auto) 0.4 uL; Lymphocytes % (auto) 5.3 % (10.0-50.0); Mean Corpuscular Hemoglobin 26.8 pg (28.0-32.0); Mean Corpuscular Volume 81.1 fL (80.0-100.0); Monocytes # (auto) 0.7 uL; Neutrophils % (auto) 85.3 % (37.0-80.0); Platelet Count (auto) 142 10^3/uL (140-450); Red Blood Cells 3.78 10^6/uL (4.0-5.20); Red Cell Distribution Width 18.4 % (11.8-14.3)
--- NOTE | 2019-01-13 08:35 | NUR ---
FAMILY Patients at bedside updated on patient condition.
[2019-01-13 08:40] LABS: Albumin 2.4 g/dL (3.4-5.0); BUN/Creatinine Ratio 14.2; Calcium 11.3 mg/dL (8.5-10.1)
[2019-01-13 08:43] LABS: Bilirubin, Total 0.6 mg/dL (0.2-1.0); Total Protein 6.1 g/dL (6.4-8.2)
[2019-01-13 09:03] LABS: Potassium 2.8 mmol/L (3.5-5.1)
[2019-01-13] MEDS: POTASSIUM CHL 20MEQ/100ML 100 ML IV SCH ×4 (09:30→21:30)
[2019-01-13] MEDS: LEVETIRACETAM INJ 1,000 MG in D5W 5% 100 ML IV SCH ×2 (10:29→21:53)
[2019-01-13] MEDS ORDERED: VANCOMYCIN 1GM/250ML 250 ML IV SCH (10:30)
[2019-01-13] MEDS: ENOXAPARIN SOD 30 MG/0.3 ML SYRINGE SC SCH (10:31)
[2019-01-13] MEDS: amLODIPine BESYLATE 5 MG TAB PO SCH (10:31)
[2019-01-13] MEDS: CARVEDILOL 12.5 MG TAB PO SCH ×2 (10:32→21:33)
[2019-01-13] MEDS: ASPirin 81 mg TAB PO SCH (10:32)
[2019-01-13] MEDS: FAMOTIDINE (10MG/ML) 2ML VL IV SCH ×2 (10:32→20:55)
--- NOTE | 2019-01-13 11:45 | NUR ---
MD Dr. Newton at bedside updated on reason for consult with new orders received, MD to input into system. Will carry out orders.
--- NOTE | 2019-01-13 12:25 | NUR ---
RT NOTE: ETT DAMION CHANGED OUT WITHOUT INCIDENT FOR ETT DAMION WITH BITE BLOCK DUE TO PT. BITTING ON ETT AND TONGUE. ELLIOT COVINGTON.
[2019-01-13] MEDS: NOREPINEPHRINE 8 MG/250ML KIT 250 ML IV SCH (12:30)
[2019-01-13 16:35] LABS: Protein, Urine 182.7 mg/dL (0.0-11.9)
--- NOTE | 2019-01-13 19:30 | NUR ---
REPORT RECEIVED, ASSUMED CARE.
--- NOTE | 2019-01-13 20:25 | NUR ---
FAMILY @ BEDSIDE: GAVE UPDATE AND EXPLAINED POC TO THEM. ADDRESSED ALL QUESTIONS AND CONCERNS. FAMILY RESPONDED WITH UNDERSTANDING AND COMPLIANCE.
[2019-01-13] MEDS: D5W/SOD CHL 0.45% 1,000 ML IV SCH ×2 (20:30→21:40)
[2019-01-13] MEDS: ATORVASTATIN 20 MG TAB PO SCH (20:55)
[2019-01-13] MEDS ORDERED: ONDANSETRON HCL 4 MG/2 ML VIAL IV PRN (21:00)
--- NOTE | 2019-01-13 23:10 | NUR ---
CAME TO PRAY FOR PT @ BEDSIDE.
[2019-01-14] VITALS (101 sets, daily range): BP systolic 102–174; BP diastolic 70–108
--- NOTE | 2019-01-14 02:22 | NUR ---
Patient had small smear, tried to adjust rectal probe, still reading 97. Pt axiliary temp is 98.3, removed rectal probe. bathe/linen change Patient given complete bath. Skin integrity assessed for any changes. Linens changed. Patient repositioned for comfort.
[2019-01-14 04:32] LABS: BUN/Creatinine Ratio 15.1; Calcium 10.6 mg/dL (8.5-10.1); Potassium 3.2 mmol/L (3.5-5.1)
--- NOTE | 2019-01-14 04:39 | NUR ---
IV removal LEFT F/A IV DC'd with clean sterile technique, catheter fully intact. Pressure dressing applied to site. Patient tolerated well. NOTE: IV insertion IV access obtained, via clean sterile technique by inserting 20 gauge catheter at LEFT WRIST after 1 attempt(s). IV secured properly. No trauma to site. Patient tolerated well. NOTE:
[2019-01-14] MEDS: ACCU-CHEK COMFORT CURVE STRIP VI SCH ×4 (06:12→22:26)
[2019-01-14] MEDS: MIDAZOLAM DRIP 50 mg/50mL 50 ML IV SCH (06:12)
[2019-01-14] MEDS: PIPERACILLIN-TAZOB 3.375GM 100 ML IV SCH ×3 (06:12→20:46)
[2019-01-14] MEDS: InsuLIN REG 1unit/0.01ml Soln (100units/ml) SC SCH ×4 (06:31→22:30)
--- NOTE | 2019-01-14 07:30 | NUR ---
REPORT Report received from Ra ZARATE, care assumed. Physical assessment complete. Afebrile, pupils reactive to light. Cough and gag present. Pulses palpable bilaterally. SCD's on bilateral lower extremities off loaded on pillows. Vitals stable at this time. Patient intubated on ventilator, ETT secure to [place], Ambu bag at bedside, ventilator connected to red outlet. Pt tolerating well, oxygen saturation 100%. See skin/wound assessment. Heller catheter present, patent, and secured below bladder. Patient repositioned in bed, alarms in place, and locked in lowest position. Will continue to monitor.
--- NOTE | 2019-01-14 08:00 | NUR ---
IV removal IV DC'd to the right forearm with clean sterile technique, 20g catheter fully intact. Pressure dressing applied to site. Patient tolerated well.
--- NOTE | 2019-01-14 08:00 | NUR ---
MD VISIT at bedside. Patient responding to suctioning, cough/gag intact. Pupils reactive to light. No new orders received at this time.
[2019-01-14 08:06] LABS: Immunoglobulin G, Serum 988 mg/dL (700-1600)
--- NOTE | 2019-01-14 08:20 | NUR ---
FAMILY Patient at bedside. Update on plan of care. All questions and concerns addressed.
[2019-01-14] MEDS: amLODIPine BESYLATE 5 MG TAB PO SCH (09:49)
[2019-01-14] MEDS: ASPirin 81 mg TAB PO SCH (09:50)
[2019-01-14] MEDS: CARVEDILOL 12.5 MG TAB PO SCH ×2 (09:50→21:54)
[2019-01-14] MEDS: FAMOTIDINE (10MG/ML) 2ML VL IV SCH ×2 (09:50→21:53)
[2019-01-14] MEDS: ENOXAPARIN SOD 30 MG/0.3 ML SYRINGE SC SCH (09:51)
[2019-01-14] MEDS: LEVETIRACETAM INJ 1,000 MG in D5W 5% 100 ML IV SCH ×2 (10:00→21:53)
[2019-01-14] MEDS: D5W/SOD CHL 0.45% 1,000 ML IV SCH ×3 (11:00→18:51)
--- NOTE | 2019-01-14 11:50 | NUR ---
WOUND CARE NOTE: ADDED PATIENT TO SKIN INTEGRITY MONITORING D/T INTUBATION STATUS. PATIENT WAS ADMITTED TO [facility] WITH DIAGNOSIS OF SEIZURES. CURRENT MARIANA SCORE IS 13. PATIENT IS INTUBATED, SEDATED. SHE IS WOUND FREE CURRENTLY. SKIN/WOUND CARE PLAN IMPLEMENTED. PATIENT WOULD BENEFIT FROM FREQUENT TURN SCHEDULE Q 2 HOURS, PRN CONDITION PERMITS, WITH PRESSURE REDISTRIBUTION USING PILLOWS/WEDGES, BID/PRN APPLICATION WITH MOISTURE BARRIER CREAM, OPTIFOAM GENTLE SACRAL DRESSING PREVENTATIVE, DIETARY CONSULT, SKIN/WOUND CARE PLAN, CONTINUED MONITORING BY WOUND CARE TEAM.
[2019-01-14] MEDS: NOREPINEPHRINE 8 MG/250ML KIT 250 ML IV SCH (12:19)
[2019-01-14] MEDS ORDERED: POTASSIUM CHLORIDE 20 MEQ, LIDOCAINE 1% (LOCAL ANESTH.) 2 ML in SODIUM CHL 0.9% 100 ML IV ONE (14:00)
[2019-01-14] MEDS ORDERED: POTASSIUM EFFERVESENT TAB 25 MEQ PO ONE (14:00)
--- NOTE | 2019-01-14 14:20 | NUR ---
MD VISIT at bedside. MD aware of neuro status and labs. Orders received for potassium replacement and dietary for tube feedings.
[2019-01-14] MEDS ORDERED: PIPERACILLIN-TAZOB 3.375GM 100 ML IV SCH (15:30)
--- NOTE | 2019-01-14 15:31 | NUR ---
MD VISIT at bedside assessing patient and speaking with patients regarding past medical history. Orders obtained.
--- NOTE | 2019-01-14 16:59 | NUR ---
CARES/LINEN Skin re-assessment performed and intact. Partial linen change complete. Patient had moderate amount of green stool. Wendy care performed. Patient repositioned on side, extremities off loaded on pillows. Patient tolerated activity well. Vital signs stable. Will continue to monitor.
--- NOTE | 2019-01-14 17:59 | NUR ---
RT NOTE RECEIVED PT INTUBATED AND ON VENT V19 ON STATED SETTINGS. VENT IS PLUGGED TO RED OUTLET. ALARMS ARE ON AND AUDIBLE AT NURSES STATION. AMBU BAG AT BEDSIDE AND CONNECTED TO O2 SOURCE. 8.0 ETT IS SECURED WITH ANCHORFAST AT 24 CM TO THE ORAL LEFT. BILATERAL BS ARE CLEAR/DIMINISHED. PT WAS SUCTIONED FOR SMALL RETURN. RN AND VISITOR AT BEDSIDE. CONT ORDERED. POX 100% Addendum: 01/14/19 at 1944 by Angela Souza RT Amended: Links added.
--- NOTE | 2019-01-14 19:15 | NUR ---
REPORT Report given to Alessandra ZARATE, care endorsed.
--- NOTE | 2019-01-14 19:26 | NUR ---
INITIAL CONTACT ASSUMED CARE OF PATIENT PATIENT APPEARS TO BE RESTING IN BED COMFORTABLY IN SEMI FOWLERS POSITION. PATIENT IS INTUBATED BUT NOT ON SEDATION AT THIS TIME. AAO TO SELF. NOTED FACIAL GRIMACE WHEN CARE IS RENDERED, PATIENT UNABLE TO MOVE UPPER AND LOWER EXTREMITIES AT THIS TIME. PUPILS SLUGGISH. LOVE CATHETER IN TACT AND DRAINING TO GRAVITY. 20 G IV TO LEFT WRIST, 20 G IV TO LEFT HAND PATENT, INTACT AND ASYMPTOMATIC. NOTED NG TUBE TO LEFT NARE/LIS. VENTILATOR PLUGGED INTO RED OUTLET PER/VAP PROTOCOL, AMBU BAG AT BEDSIDE. BED IN LOWEST LOCKED POSITION, SIDE RAILS UP X 2. PATIENT IS IN FULL VIEW OF NURSES STATION, SAFETY MAINTAINED, WILL CONTINUE TO MONITOR.
--- NOTE | 2019-01-14 20:03 | NUR ---
FAMILY AT BEDSIDE SPOUSE LUZ AT BEDSIDE
--- NOTE | 2019-01-14 20:15 | NUR ---
SPOUSE UPDATED UPDATED SPOUSE ON PATIENT CURRENT CONDITION ALL QUESTIONS AND CONCERNS WERE ADDRESSED
--- NOTE | 2019-01-14 20:15 | NUR ---
RT NOTE ROUTINE VENT CHECK DONE. PT INTUBATED AND ON VENT V19 ON STATED SETTINGS. VENT IS PLUGGED TO RED OUTLET. ALARMS ARE ON AND AUDIBLE AT NURSES STATION. AMBU BAG AT BEDSIDE AND CONNECTED TO O2 SOURCE. 8.0 ETT IS SECURED WITH ANCHORFAST AT 24 CM TO THE ORAL LEFT. VISITOR AT BEDSIDE. CONT ORDERED. POX 100% Addendum: 01/14/19 at 2042 by Angela Souza RT Amended: Links added.
--- NOTE | 2019-01-14 21:40 | NUR ---
LAB AT BEDSIDE
[2019-01-14] MEDS: ATORVASTATIN 20 MG TAB PO SCH (21:54)
--- NOTE | 2019-01-14 22:07 | NUR ---
RT NOTE ROUTINE VENT CHECK DONE. PT INTUBATED AND ON VENT V19 ON STATED SETTINGS. VENT IS PLUGGED TO RED OUTLET. ALARMS ARE ON AND AUDIBLE AT NURSES STATION. AMBU BAG AT BEDSIDE AND CONNECTED TO O2 SOURCE. 8.0 ETT IS SECURED WITH ANCHORFAST AT 24 CM TO THE ORAL LEFT. BS ARE CLEAR. PT WAS SUCTIONED FOR SCANT RETURN. RN AT BEDSIDE. CONT ORDERED. POX 100% Addendum: 01/14/19 at 2233 by Angela Souza RT Amended: Links added.
[2019-01-15] VITALS (86 sets, daily range): BP systolic 114–192; BP diastolic 75–108
--- NOTE | 2019-01-15 00:03 | NUR ---
RT NOTE ROUTINE VENT CHECK DONE. PT INTUBATED AND ON VENT V19 ON STATED SETTINGS. VENT IS PLUGGED TO RED OUTLET. ALARMS ARE ON AND AUDIBLE AT NURSES STATION. AMBU BAG AT BEDSIDE AND CONNECTED TO O2 SOURCE. 8.0 ETT IS SECURED WITH ANCHORFAST AT 24 CM TO THE ORAL LEFT.CONT ORDERED. POX 100% Addendum: 01/15/19 at 0038 by Angela Souza RT Amended: Links added.
--- NOTE | 2019-01-15 02:09 | NUR ---
RT NOTE ROUTINE VENT CHECK DONE. PT INTUBATED AND ON VENT V19 ON STATED SETTINGS. VENT IS PLUGGED TO RED OUTLET. ALARMS ARE ON AND AUDIBLE AT NURSES STATION. AMBU BAG AT BEDSIDE AND CONNECTED TO O2 SOURCE. 8.0 ETT IS SECURED WITH ANCHORFAST AT 24 CM TO THE ORAL LEFT.PT SUCTIONED FOR SCANT RETURN. CONT ORDERED. POX 100% Addendum: 01/15/19 at 0229 by Angela Souza RT Amended: Links added.
--- NOTE | 2019-01-15 05:00 | NUR ---
Patient bathe/linen change Patient given complete bath. Skin integrity assessed for any changes. Linens changed. Patient repositioned for comfort.
[2019-01-15] MEDS: PIPERACILLIN-TAZOB 3.375GM 100 ML IV SCH ×3 (05:32→20:26)
[2019-01-15] MEDS: D5W/SOD CHL 0.45% 1,000 ML IV SCH ×2 (05:38→17:18)
[2019-01-15] MEDS: MIDAZOLAM DRIP 50 mg/50mL 50 ML IV SCH (05:38)
--- NOTE | 2019-01-15 06:00 | NUR ---
ELIMINATION SMALL B/M MUCOID CONSISTENCY/ DARK BROWN IN COLOR PATIENT GIVEN MIKE CARE
[2019-01-15] MEDS: InsuLIN REG 1unit/0.01ml Soln (100units/ml) SC SCH ×4 (07:00→22:36)
[2019-01-15] MEDS: ACCU-CHEK COMFORT CURVE STRIP VI SCH ×4 (07:13→22:27)
--- NOTE | 2019-01-15 07:52 | NUR ---
Opening shift note: Report received from ELLIOT Aparicio. Patient with IVF -no sedation required. See Interventions for detailed assessment.
--- NOTE | 2019-01-15 08:00 | NUR ---
Discontinued LH peripheral IV - not flushing.
[2019-01-15] MEDS: hydrALAZINE HCL 20 MG/ML VL IV PRN ×2 (08:29→18:24)
[2019-01-15] MEDS: ENOXAPARIN SOD 30 MG/0.3 ML SYRINGE SC SCH (09:59)
[2019-01-15] MEDS: FAMOTIDINE (10MG/ML) 2ML VL IV SCH ×2 (09:59→22:28)
[2019-01-15] MEDS: CARVEDILOL 12.5 MG TAB PO SCH ×2 (10:00→22:27)
[2019-01-15] MEDS: ASPirin 81 mg TAB PO SCH (10:00)
[2019-01-15] MEDS: amLODIPine BESYLATE 5 MG TAB PO SCH (10:00)
--- NOTE | 2019-01-15 10:11 | NUR ---
Dr. Cloud at bedside: CXR, and ABG in the AM.
--- NOTE | 2019-01-15 10:20 | NUR ---
Dr. Akins at bedside: labs.
[2019-01-15] MEDS: LEVETIRACETAM INJ 1,000 MG in D5W 5% 100 ML IV SCH ×2 (10:26→22:26)
--- NOTE | 2019-01-15 11:17 | NUR ---
NUTRITION CONSULT/ASSESSMENT NOTES Please refer to link notes of nutrition screen form filed under the intervention section of the plan of care for further details. Est. Needs: 1850 kcal to 2250 kcal (25-30 kcal/kgBW), 59 gms to 74 gms pro (0.8-1.0 gms/kgBW). Will continue to monitor pertinent labs and reassess nutrient need prn Thank you. for this consult. Addendum: 01/15/19 at [address] Amended: Links added.
[2019-01-15] MEDS: NOREPINEPHRINE 8 MG/250ML KIT 250 ML IV SCH (11:57)
--- NOTE | 2019-01-15 11:58 | NUR ---
Dr. Newton at bedside: No new orders, patient assessed.
--- NOTE | 2019-01-15 15:57 | NUR ---
Rectal tube inserted for diarrhea stool.
--- NOTE | 2019-01-15 16:00 | NUR ---
Dr. Rutherford updated on patients current status.
--- NOTE | 2019-01-15 19:26 | NUR ---
Endorsed care to ELLIOT Jones.
--- NOTE | 2019-01-15 19:30 | NUR ---
OPENING NOTES ASSUMED CARE, LAYING ON BED WITH NO SIGNS OF DISTRESS, STILL ON VENT, NO SEDATION, OGT TO LIS DRAINING TO A BILIOUS OUTPUT, LOVE CATHETER AND FLEXISEAL IN PLACE, PIV IN THE LEFT WRIST INFUSING BICARB DRIP @ 125 ML/HR. BED IN LOWEST POSITION WITH SIDE RAILS UP, BED ALARM ON. WILL CONTINUE CARE.
--- NOTE | 2019-01-15 19:55 | NUR ---
IV IN THE LEFT HAND NOT FLUSHING, D/C AND REINSERTED ANOTHER IV IN THE LEFT FOREARM G. 20 AFTER 2 ATTEMPTS.
--- NOTE | 2019-01-15 20:15 | NUR ---
FAMILY AT BEDSIDE
[2019-01-15] MEDS: ATORVASTATIN 20 MG TAB PO SCH (22:27)
[2019-01-16] VITALS (65 sets, daily range): BP systolic 111–193; BP diastolic 65–113
[2019-01-16] MEDS: hydrALAZINE HCL 20 MG/ML VL IV PRN ×2 (02:05→19:26)
[2019-01-16] MEDS: D5W/SOD CHL 0.45% 1,000 ML IV SCH ×4 (02:36→19:26)
--- NOTE | 2019-01-16 02:59 | NUR ---
MORNING CARE DONE, FULL LINENS CHANGED. SKIN REASSESSED FOR ANY CHANGES. REPOSITIONED FOR COMFORT.
[2019-01-16 04:10] LABS: Basophils # (auto) 0 uL; Basophils % (auto) 0.3 % (0.0-2.0); Eosinophils # (auto) 0.1 uL; Hemoglobin 9.9 g/dL (12.2-16.2); Monocytes # (auto) 0.4 uL
[2019-01-16 04:13] LABS: Hematocrit 29.4 % (36.0-46.0); Lymphocytes # (auto) 0.5 uL; Lymphocytes % (auto) 11.9 % (10.0-50.0); Mean Corpuscular Hemoglobin 26.9 pg (28.0-32.0); Mean Corpuscular Hgb Conc. 33.5 g/dL (32.0-36.0); Mean Corpuscular Volume 80.2 fL (80.0-100.0); Monocytes % (auto) 7.8 % (0.0-12.0); Neutrophils # (auto) 3.5 uL; Nucleated Red Blood Cells % 0.2 %; Platelet Count (auto) 184 10^3/uL (140-450); Red Blood Cells 3.67 10^6/uL (4.0-5.20); Red Cell Distribution Width 18.6 % (11.8-14.3); White Blood Cell 4.5 10^3/uL (4.4-10.8)
[2019-01-16 04:28] LABS: Potassium 3.1 mmol/L (3.5-5.1)
[2019-01-16 04:31] LABS: BUN/Creatinine Ratio 11.5
[2019-01-16 04:34] LABS: Bilirubin, Total 0.5 mg/dL (0.2-1.0)
--- NOTE | 2019-01-16 05:00 | NUR ---
TEMP 94.3, PLACED ON A DENIS HUGGER
[2019-01-16] MEDS: PIPERACILLIN-TAZOB 3.375GM 100 ML IV SCH (05:01)
[2019-01-16] MEDS: InsuLIN REG 1unit/0.01ml Soln (100units/ml) SC SCH ×4 (05:48→21:30)
[2019-01-16] MEDS: ACCU-CHEK COMFORT CURVE STRIP VI SCH ×4 (05:48→21:26)
[2019-01-16] MEDS: MIDAZOLAM DRIP 50 mg/50mL 50 ML IV SCH (06:16)
--- NOTE | 2019-01-16 06:38 | NUR ---
PAGED DR. RODGERS AND LEFT A VOICE MESSAGE RE: K+ 3.1. AWAITING CALL BACK.
--- NOTE | 2019-01-16 06:53 | NUR ---
LATEST TEMP 96.8, STILL WITH DENIS SWANSON.
--- NOTE | 2019-01-16 09:30 | NUR ---
DR BRIONES AT BEDSIDE UPDATED ON CURRENT STATUS. NEW ORDERS PLACED FOR ELECTROLYTE REPLACEMENT
[2019-01-16] MEDS ORDERED: POTASSIUM CHL 20MEQ/100ML 100 ML IV ONE (09:45)
[2019-01-16] MEDS: ENOXAPARIN SOD 30 MG/0.3 ML SYRINGE SC SCH (10:17)
[2019-01-16] MEDS: FAMOTIDINE (10MG/ML) 2ML VL IV SCH ×2 (10:17→21:25)
[2019-01-16] MEDS: amLODIPine BESYLATE 5 MG TAB PO SCH (10:18)
[2019-01-16] MEDS: CARVEDILOL 12.5 MG TAB PO SCH ×2 (10:18→21:25)
[2019-01-16] MEDS: ASPirin 81 mg TAB PO SCH (10:19)
[2019-01-16] MEDS: LEVETIRACETAM INJ 1,000 MG in D5W 5% 100 ML IV SCH ×2 (10:34→21:26)
--- NOTE | 2019-01-16 12:45 | NUR ---
DR LOMAX AT BEDSIDE DISCUSSED PATIENTS CURRENT STATUS.
--- NOTE | 2019-01-16 13:18 | NUR ---
VENT SETTINGS CHANGED TO AC 12, VT450, PEEP8, PER DR LOMAX. NO ABG TO BE DONE TODAY.
--- NOTE | 2019-01-16 14:30 | NUR ---
DR JOHNSON AT BEDSIDE DISCUSSED PATIENTS CONDITION AND PLAN OF CARE WITH PATIENTS TOMI AND PATIENTS AUNT. ADDRESSED CONCERNS
--- NOTE | 2019-01-16 16:40 | NUR ---
TRANSPORTED PATIENT TO RADIOLOGY AND BACK FOR HEAD CT SCAN WITH RESPIRATORY THERAPIST. TRANSPORTED ON PORTABLE VENTILATOR, CONNECTED TO PORTABLE EDUCATION SPECIALIST. PATIENT REMAINED STABLE DURING TRANSPORT
--- NOTE | 2019-01-16 19:15 | NUR ---
Initial Assessment Patient received laying on bed on mechanical ventilation. HOB elevated greater than 30 degrees. ETT secured with Sarah, ventilator plugged into red outlet, Ambu bag at bedside, oral care and suction rendered. CATINA 3 and sluggish with hypoactive cough and gag. No purposeful movements noted. NGT to left nare connected to LIS. RN verified proper placement via auscultation with air bolus. Peripheral IV intact and patent x2 with no s/s of infiltration or phlebitis noted-refer to IV spreadsheet for infusion specifics. Abd soft. F/C intact and draining to gravity (oliguric), SCD's intact to BLE. Bed in lowest position, side rails up, bed brakes set, bed alarm set, all alarms audible, in direct view of nurses station. Continue close monitoring.
--- NOTE | 2019-01-16 19:26 | NUR ---
Blood pressure management Patient's blood pressure greater than 160mmhg. Hydralazine administered per MD order via slow IVP. patient tolerated well.
--- NOTE | 2019-01-16 20:00 | NUR ---
Tube feeding Initiated Order to initiate Glucerna with goal rate of 30ml/hour. Tube feeding initiated at 10ml/hour via NGT. HOB elevated greater than 30 degrees. Aspiration precautions intact.
[2019-01-16] MEDS: ATORVASTATIN 20 MG TAB PO SCH (21:25)
--- NOTE | 2019-01-16 22:15 | NUR ---
Visitors Family at bedside visiting with patient. RN updated on status of patient and PCO and she verbalized understanding. No concerns or complaints voiced from her at this time. Continue close care.
[2019-01-17] VITALS (101 sets, daily range): BP systolic 92–205; BP diastolic 65–125
--- NOTE | 2019-01-17 | NUR ---
Ongoing Assessment Tube feeding residual re-checked and it is 10ml. Tube feedings increased to 20ml/hour. HOB remains elevated greater than 30 degrees. Patient being turned Q2H, all bony prominences and heels offloaded with pillows, skin is clean and dry. Oral care and suction rendered. All fall and safety precautions are intact. Neurovascular status remains intact with palpable distal pulses, skin warm to touch, and capillary refill brisk. Bed in lowest position, side rails up, bed brakes set, all vitals stable. Continue close monitoring.
--- NOTE | 2019-01-17 02:15 | NUR ---
Hygiene Patient given CHG bath. All linens and gown changed. Barrier cream applied to sofiya-area. DTI/ecchymotic area on sacrum remains unchanged. Will take picture on next turn. Optifoam gentle adhesive remains CDI.
--- NOTE | 2019-01-17 04:00 | NUR ---
Tube feeding Tube feeding residual re-checked and it is 15ml. Tube feedings increased to 30ml/hour (goal rate). HOB remains elevated.
[2019-01-17 04:14] LABS: Basophils # (auto) 0 uL; Basophils % (auto) 0.5 % (0.0-2.0); Eosinophils # (auto) 0.1 uL; Eosinophils % (auto) 2.8 % (0.0-7.0); Hematocrit 27.5 % (36.0-46.0); Hemoglobin 9.2 g/dL (12.2-16.2); Lymphocytes # (auto) 0.5 uL; Lymphocytes % (auto) 12.8 % (10.0-50.0); Mean Corpuscular Hemoglobin 27.1 pg (28.0-32.0); Mean Corpuscular Hgb Conc. 33.4 g/dL (32.0-36.0); Mean Corpuscular Volume 80.9 fL (80.0-100.0); Monocytes # (auto) 0.4 uL; Monocytes % (auto) 10.1 % (0.0-12.0); Neutrophils # (auto) 3.1 uL; Neutrophils % (auto) 73.8 % (37.0-80.0); Platelet Count (auto) 194 10^3/uL (140-450); Red Cell Distribution Width 18.6 % (11.8-14.3); White Blood Cell 4.2 10^3/uL (4.4-10.8)
[2019-01-17 04:50] LABS: Albumin 1.8 g/dL (3.4-5.0); BUN/Creatinine Ratio 10.2; Bilirubin, Total 0.3 mg/dL (0.2-1.0); Calcium 10.8 mg/dL (8.5-10.1); Potassium 3.2 mmol/L (3.5-5.1); Total Protein 5.6 g/dL (6.4-8.2)
--- NOTE | 2019-01-17 05:00 | NUR ---
Wound photo taken of darkened area to sacrum. Wound consult to be placed per protocol.
[2019-01-17] MEDS: D5W/SOD CHL 0.45% 1,000 ML IV SCH ×3 (05:58→23:43)
[2019-01-17] MEDS: MIDAZOLAM DRIP 50 mg/50mL 50 ML IV SCH (05:58)
[2019-01-17] MEDS: ACCU-CHEK COMFORT CURVE STRIP VI SCH ×4 (06:25→21:32)
[2019-01-17] MEDS: InsuLIN REG 1unit/0.01ml Soln (100units/ml) SC SCH ×4 (06:25→21:32)
[2019-01-17] MEDS: hydrALAZINE HCL 20 MG/ML VL IV PRN ×2 (06:48→16:09)
--- NOTE | 2019-01-17 06:48 | NUR ---
Blood pressure management Patient's blood pressure greater than 160mmhg. Hydralazine administered per MD order via slow IVP. patient tolerated well.
--- NOTE | 2019-01-17 07:00 | NUR ---
Report given No changes or incidents to report. patient continues to rest with no s/s of distress or pain. IV sites intact and patent with no s/s of infiltration or phlebitis. All vitals stable. Care endorsed to day shift RN.
--- NOTE | 2019-01-17 07:42 | NUR ---
Opening shift note Report received from warehouse worker 2nd shift rn, morning assessment performed and documented. 53 year old female, resting in bed, mechanically ventilated, not sedated. HOB elevated greater than 30 degrees. ETT secured with Sarah, ventilator plugged into red outlet, Ambu bag at bedside, oral care and suction rendered. CATINA 3+ and sluggish with hypoactive cough and gag. No purposeful movements noted. NGT to left nare infusing Glucerna at a goal rate of 30 mls/hr with 10 mls residual. RN verified proper placement via auscultation with air bolus. Peripheral IV intact and patent x2 with no s/s of infiltration or phlebitis noted-refer to IV spreadsheet for infusion specifics. Abdomen soft. F/C intact and draining to gravity cloudy/sediment yellow urine. Flexi-seal patent and draining liquid green stool, SCD's to bilateral lower extremities. Bed in lowest position, side rails up, bed brakes set, bed alarm set, all alarms audible, in direct view of nurses station, seizure precaution in place. Family member at bedside and asked to step out for morning assessment. Family member verbalized understanding. Continue close monitoring.
--- NOTE | 2019-01-17 08:41 | NUR ---
RETURNING FAMILY CALL MESSAGE LEFT FOR CHUCHO REGARDING RETURN CALL.
--- NOTE | 2019-01-17 08:53 | NUR ---
Family updated on pt status Family of CARLOS MANUEL updated on patient's status and condition after password verification. All questions and concerns addressed. Louise verbalized understanding. MACO
--- NOTE | 2019-01-17 10:40 | NUR ---
PULMONOLOGY AT BEDSIDE DR LOMAX UPDATED ON PATIENT'S STATUS, NO ORDERS RECEIVED AT THIS TIME.
[2019-01-17] MEDS: ENOXAPARIN SOD 30 MG/0.3 ML SYRINGE SC SCH (10:46)
[2019-01-17] MEDS: FAMOTIDINE (10MG/ML) 2ML VL IV SCH ×2 (10:46→21:29)
[2019-01-17] MEDS: amLODIPine BESYLATE 5 MG TAB PO SCH (10:46)
[2019-01-17] MEDS: ASPirin 81 mg TAB PO SCH (10:47)
[2019-01-17] MEDS: CARVEDILOL 12.5 MG TAB PO SCH ×2 (10:47→21:30)
--- NOTE | 2019-01-17 11:15 | NUR ---
NEUROLOGY/NEPHROLOGY AT BEDSIDE DR JOHNSON AND DR BRIONES AT BEDSIDE, BOTH MD'S UPDATED ON PATIENT'S STATUS. ORDERS RECEIVED FROM DR BRIONES FOR POTASSIUM REPLACEMENT.
[2019-01-17] MEDS ORDERED: POTASSIUM CHL 20MEQ/100ML 100 ML IV ONE (11:30)
--- NOTE | 2019-01-17 11:33 | NUR ---
Nutrition Follow-up Notes Wt.: 74.5 kg today. Pt's intubated, non-sedated, no immediate family member at bedside when rounded earlier. Pt's currently NPO with EN support of Glucerna 1.2 Bjorn @ 30 ml/hr providing 864 kcal, 43 gms pro and 580 ml free water, tolerates feeding, had 10 ml residuals noted by RN this morning. Pt with inadequate EN support d/t low initiation rate delivery of concentrated formula aeb current EN infusion meets 38% to 47% of est caloric needs and 58% to 73% of est protein needs. Noted pt's for active Wound consult. Est. Needs: 1850 kcal to 2250 kcal (25-30 kcal/kgBW), 59 gms to 74 gms pro (0.8-1.0 gms/kgBW). Will continue to monitor pertinent labs and reassess nutrient need prn Labs: Gluc 228 H, Na 135 L, K 3.2 L, CO2 20 L, BUN 25 H, Cr 2.45 H, Ca 10.8 H, AST 69 H, Tpro 5.6 L, Alb 1.8 L Skin: Ulises scale 12, high risk, pt's medial sacrum ecchymosis per behavioral health case manager. Pls refer to latest sebd teacher's notes for further details re:tx plans. GI: Pt had 100 ml stool output this morning per behavioral health case manager. PES: Increased nutrient needs r/t acute/chronic medical condition aeb intubated, NPO with EN support. Altered nutrition related lab values r/t current/chronic medical condition aeb hyperglycemia, elev. renal labs, hypercalcemia Will continue to monitor NPO status, EN tolerance, skin status, pertinent labs and weight trend. F/u in 2 to 3 days. Rec.: 1.) If still NPO with EN support, consider gradual increase on feeding rate of Glucerna 1.2 Bjorn to 70 ml/hr goal rate as tolerated when medically appropriate. 2.) If Albumin continues trending down with improved renal labs, consider Prostat 1 pkt BID. 3.) Consider daily MVI with minerals and Asc acid 500 mgs BID prn. 4.) Advance gradually to oral diet when medically appropriate. 5.) Refer pt to CDE/RD for further nutrition education and weight monitoring upon discharge. 6.) Continue current plan of care.
[2019-01-17] MEDS: LEVETIRACETAM INJ 1,000 MG in D5W 5% 100 ML IV SCH ×2 (11:51→21:30)
--- NOTE | 2019-01-17 12:01 | NUR ---
FAMILY UPDATE/PASSWORD CHANGE Family of CARLOS MANUEL updated on patient's status and condition after password verification. Josh reported to this nurse that "I changed the password from [id number] to [id number] a couple days ago because there are some family members that don't need to be calling". Password changed, all questions and concerns addressed. Josh verbalized understanding.
--- NOTE | 2019-01-17 15:15 | NUR ---
WOUND CARE NOTE: Reconsult received from nursing. Patient on skin integrity rounding due to low Ulises and intubation status. Patient seen with bedside RN, Anh. Patient remains intubated and is not sedated. Patient with an anoxic brain injury. Patient turned and sacrum assessed. Patient with a dark area of discoloration that measures 2x4cm consistent with DTI. RECOMMENDATIONS: Nursing to continue with previous wound/skin care orders; Nursing to cleanse sacrum with mild soap and water, pat dry, apply ZGUARD BID/PRN soiling, cover with OPTIFOAM GENTLE, change every other day/PRN soiling; wound care team to continue to follow. Addendum: 01/17/19 at 1751 by YANELI SHAH RN Amended: Links added.
--- NOTE | 2019-01-17 17:26 | NUR ---
FAMILY AT BEDSIDE PATIENT'S SPOUSE TOMI AT BEDSIDE, UPDATED TOMI ON PATIENT'S STATUS. TOMI VERBALIZED TO THIS NURSE THAT "I WILL NOT BE ABLE TO COME AND SEE HER FOR FOUR DAYS BECAUSE OF WORK". WHEN ASKED WHO WILL BE MAKING MEDICAL DECISIONS FOR PATIENT'S CARE, TOMI STATED "I WILL, HER SISTER DOES NOT KNOW WE ARE ".
--- NOTE | 2019-01-17 18:37 | NUR ---
FAMILY AT BEDSIDE
--- NOTE | 2019-01-17 19:14 | NUR ---
END OF SHIFT NOTE PATIENT RESTING IN BED, MECHANICALLY VENTILATED. VSS AND DOCUMENTED. NON-RESPONSIVE, NON SEDATED. ENDORSED CONTINUED CARE TO TOE CLOSING MACHINE TENDER RN. FALL, SAFETY AND SEIZURE PRECAUTIONS IN PLACE.
--- NOTE | 2019-01-17 19:30 | NUR ---
Initial Assessment Patient received laying on bed on mechanical ventilation. HOB elevated greater than 30 degrees. ETT secured with Sarah, ventilator plugged into red outlet, Ambu bag at bedside, oral care and suction rendered. CATINA 3 and sluggish with hypoactive cough and gag. Patient noted to withdraw slightly to painful stimulation but does not open eyes or follow commands. NGT to left nare running Glucerna at 30ml/hour. Tube feeding residual checked and it is 5ml. Tube feedings remains at goal rate. RN verified proper placement via auscultation with air bolus. Peripheral IV intact and patent x2 with no s/s of infiltration or phlebitis noted-refer to IV spreadsheet for infusion specifics. Abd soft. F/C intact and draining to gravity (oliguric), Rectal tube intact to rectum draining liquid/brown stool to gravity. Optifoam gentle adhesive dressing CDI to sacral area. SCD's intact to BLE. Bed in lowest position, side rails up, bed brakes set, bed alarm set, all alarms audible, in direct view of nurses station. Continue close monitoring.
--- NOTE | 2019-01-17 20:00 | NUR ---
Tube feeding changed Tube feeding bottle and tubing changed per 24 hour protocol. Residual is at 10ml.
[2019-01-17] MEDS: ATORVASTATIN 20 MG TAB PO SCH (21:30)
[2019-01-18] VITALS (98 sets, daily range): BP systolic 80–184; BP diastolic 57–106
--- NOTE | 2019-01-18 | NUR ---
Ongoing Assessment Tube feeding residual re-checked and it is less than 5 ml. Tube feedings remain at goal rate of 30ml/hour. HOB remains elevated greater than 30 degrees, abd soft and non-distended. Patient being turned Q2H, all bony prominences and heels offloaded with pillows, skin is clean and dry. Oral care and suction rendered. All fall and safety precautions are intact. Neurovascular status remains intact with palpable distal pulses, skin warm to touch, and capillary refill brisk. Bed in lowest position, side rails up, bed brakes set, all vitals stable. Continue close monitoring.
--- NOTE | 2019-01-18 02:00 | NUR ---
Specialty mattress Specialty mattress arrived from vendor. patient transferred onto specialty mattress without incident. Continues to be turned Q2H, all bony prominences and heels offloaded with pillows, skin is clean and dry.
--- NOTE | 2019-01-18 04:00 | NUR ---
Tube feeding Tube feeding residual re-checked and it is 5ml. Tube feedings remain at goal rate of 30ml/hour. HOB remains elevated, abd soft and non-distended.
[2019-01-18 04:51] LABS: Basophils # (auto) 0 uL; Eosinophils # (auto) 0.1 uL; Monocytes # (auto) 0.6 uL; Monocytes % (auto) 13.9 % (0.0-12.0); Neutrophils # (auto) 2.6 uL; Nucleated Red Blood Cells % 0.1 %
[2019-01-18 04:55] LABS: Basophils % (auto) 0.3 % (0.0-2.0); Eosinophils % (auto) 2.2 % (0.0-7.0); Hematocrit 30.8 % (36.0-46.0); Hemoglobin 10.1 g/dL (12.2-16.2); Lymphocytes # (auto) 0.7 uL; Lymphocytes % (auto) 18.6 % (10.0-50.0); Mean Corpuscular Hemoglobin 26.3 pg (28.0-32.0); Mean Corpuscular Hgb Conc. 32.8 g/dL (32.0-36.0); Mean Corpuscular Volume 80.1 fL (80.0-100.0); Platelet Count (auto) 208 10^3/uL (140-450); Red Blood Cells 3.85 10^6/uL (4.0-5.20); Red Cell Distribution Width 18.4 % (11.8-14.3)
[2019-01-18] MEDS: MIDAZOLAM DRIP 50 mg/50mL 50 ML IV SCH (04:55)
[2019-01-18 05:09] LABS: BUN/Creatinine Ratio 9.5; Calcium 11.4 mg/dL (8.5-10.1); Potassium 3.5 mmol/L (3.5-5.1)
--- NOTE | 2019-01-18 06:00 | NUR ---
Hygiene partial CHG bath given. All linens and gown changed. Skin re-assessed for any changes and none noted. Patient tolerated well.
[2019-01-18] MEDS: InsuLIN REG 1unit/0.01ml Soln (100units/ml) SC SCH ×4 (06:09→22:00)
[2019-01-18] MEDS: ACCU-CHEK COMFORT CURVE STRIP VI SCH ×4 (06:09→21:55)
--- NOTE | 2019-01-18 06:52 | NUR ---
Respiratory note: RECEIVED PATIENT ON V8 CARESCAPE VENT ORALLY INTUBATED WITH AN 8.0 ETT SECURED VIA DAMION AT THE 24CM MARKING AT THE LIP, AND MECHANICALLY VENTILATED WITH THE CHARTED SETTINGS. SPO2 100%,LUNG SOUNDS CLEAR/DIM T/O, NO SECRETIONS WHEN SUCTIONED. SKIN IS WARM/DRY TO THE TOUCH AND IS INTACT NEAR DAMION SITE. THERE IS A NGT IN PLACE AND SECURED TO THE NOSE, NO CENTRAL VENOUS ACCESS NOTED. SMALL AMOUNT OF PITTING EDEMA NOTED ON BILATERAL UPPER EXTREMITIES, NO EDEMA NOTED ON LOWER EXTREMITIES. SEQUENTIAL STOCKINGS ARE IN PLACE AND OPERATIONAL. NO NEW AM CXR TO ASSESS. PATIENT IS UNRESPONSIVE TO BOTH VERBAL/TACTILE STIMULI AND IS OFF ALL SEDATION. SHE IS RESTING COMFORTABLY AND TOLERATING VENT WELL, NO CHANGES MADE. VENT PLUGGED INTO RED OUTLET AND ALL ALARMS ARE SET AND AUDIBLE. WILL CONTINUE TO ASSESS PATIENT WELL VENTILATOR FUNCTION.
--- NOTE | 2019-01-18 07:00 | NUR ---
Respiratory note: AM CXR ASSESSED AND IT SHOWS ETT IN SATISFACTORY POSITION SITTNG APPROX 3CM ABOVE THE HYUN. NO INDICATION TO ADJUST TUBE AT THIS TIME.
[2019-01-18] MEDS: D5W/SOD CHL 0.45% 1,000 ML IV SCH ×2 (07:30→13:43)
--- NOTE | 2019-01-18 08:00 | NUR ---
OPEN RECEIVED REPORT FROM NIGHT RN. ASSUMED CARE OF ICU PATIENT, FULL CODE STATUS. PATIENT UNRESPONSIVE TO STIMULI AT THIS TIME, NO SEDATION AT THIS TIME. PATIENT ON VENT. 8.0 ETT, 25 CM AT LIP. AC 12, 450 VT, 30% FIO2, PEEP +8. NGT WITH GLUCERNA TUBE FEEDING AT 30 ML/HR, TOLERATING WITH NO RESIDUALS AT THIS. FLEXISEAL TO GRAVITY. LOVE TO GRAVITY. SEE SCHOOL CROSSING GUARD FOR FURTHER PATIENT INFORMATION. WILL CONTINUE TO TURN PATIENT Q2HRS AND PRN. OFF LOADING PRESSURE AREAS WITH PILLOWS. CONTINUE CARE.
[2019-01-18] MEDS: FAMOTIDINE (10MG/ML) 2ML VL IV SCH ×2 (09:19→21:59)
[2019-01-18] MEDS: ENOXAPARIN SOD 30 MG/0.3 ML SYRINGE SC SCH (09:19)
[2019-01-18] MEDS: amLODIPine BESYLATE 5 MG TAB PO SCH (09:20)
[2019-01-18] MEDS: ASPirin 81 mg TAB PO SCH (09:20)
[2019-01-18] MEDS: CARVEDILOL 12.5 MG TAB PO SCH ×2 (09:21→22:00)
[2019-01-18] MEDS: hydrALAZINE HCL 20 MG/ML VL IV PRN ×2 (09:38→17:29)
--- NOTE | 2019-01-18 09:38 | NUR ---
BP 203/107, HR 69 PATIENT GIVEN PRN HYDRALAZINE 10 MG IVP X1 NOW PER MD ORDERS. WILL CONTINUE TO MONITOR.
--- NOTE | 2019-01-18 10:01 | NUR ---
REASSESS BP CURRENT BP IS 155/86, HR 71. WILL CONTINUE TO MONITOR BP. AM BP MEDS ALSO GIVEN. CONTINUE CARE.
[2019-01-18] MEDS: LEVETIRACETAM INJ 1,000 MG in D5W 5% 100 ML IV SCH ×2 (10:22→22:08)
--- NOTE | 2019-01-18 11:32 | NUR ---
DR. LOMAX AT BEDSIDE: UPDATE UPDATED ON PT'S CURRENT STATUS, LABS AND POC FOR TODAY. WILL CONTINUE WITH CURRENT TX PLAN. CONTINUE CARE. Addendum: 01/18/19 at 1304 by Chika Petersen RN DR. LOMAX DOES NOT WANT DAILY ABG'S OR CXR'S ON PATIENT. UNLESS THERE IS A CHANGE IN PATIENT'S STATUS. WILL MEASURE END TIDAL CO2 LEVELS AT BEDSIDE INSTEAD.CONTINUE CARE. WILL RELAY INFO TO NIGHT RN.
--- NOTE | 2019-01-18 17:30 | NUR ---
BP 184/111, HR 75 PATIENT GIVEN PRN HYDRALAZINE 10 MG IVP X1 NOW PER MD ORDERS. WILL REASSESS SOON. CONTINUE TO MONITOR.
--- NOTE | 2019-01-18 18:10 | NUR ---
REASSESS BP CURRENT BP 130/87, HR 74 WILL CONTINUE TO MONITOR PATIENT.
--- NOTE | 2019-01-18 19:50 | NUR ---
OPEN NOTES Assumed care of patient. Received patient not waking up, not on any sedation. Noted some movement of the lips and eyes when stimulated. Intubated on AC mode, FIO2 30%, breaths 12-14/min. Suctioned secretions - more orally than ETT. Oral care done. Tongue noted to be protruding out and swollen. VS stable. Afebrile. Left Nares NGT with ongoing tube feeding Glucerna at 30ml/hr - tolerated well. Ongoing IVF D5 1/2 NS at 125ml/hr Heller catheter in placed with yellowish output with sediments noted. IV lines: left wrist G20, left FA G20 and right upper arm G18 - all flushed,patent and intact.Dressing CDI Repositioned. Both legs with SCDs Full assessment done -refer interventions
--- NOTE | 2019-01-18 20:30 | NUR ---
MD ROUNDS DR. RODGERS MAKING ROUNDS.UPDATED HIM OF PATIENT CONDITION. VERBAL ORDER RECEIVED
[2019-01-18] MEDS: ATORVASTATIN 20 MG TAB PO SCH (21:59)
[2019-01-18] MEDS: Glucerna 1.2 Cal 1Liter BOTTLE GT SCH (23:46)
[2019-01-19] VITALS (58 sets, daily range): BP systolic 104–177; BP diastolic 62–104
--- NOTE | 2019-01-19 03:30 | NUR ---
Patient bathe/linen change Patient given complete bath. Cleaned with CHG wipes. Skin integrity assessed for any changes. Linens changed. Patient repositioned for comfort.
[2019-01-19 04:31] LABS: Basophils # (auto) 0 uL; Basophils % (auto) 0.8 % (0.0-2.0); Eosinophils # (auto) 0.1 uL; Eosinophils % (auto) 1.7 % (0.0-7.0); Hematocrit 30.2 % (36.0-46.0); Hemoglobin 9.9 g/dL (12.2-16.2); Lymphocytes # (auto) 0.7 uL; Lymphocytes % (auto) 16.2 % (10.0-50.0); Mean Corpuscular Hemoglobin 26.3 pg (28.0-32.0); Mean Corpuscular Hgb Conc. 32.8 g/dL (32.0-36.0); Mean Corpuscular Volume 80.1 fL (80.0-100.0); Monocytes # (auto) 0.6 uL; Neutrophils # (auto) 2.7 uL; Neutrophils % (auto) 66.3 % (37.0-80.0); Platelet Count (auto) 214 10^3/uL (140-450); Red Blood Cells 3.77 10^6/uL (4.0-5.20); Red Cell Distribution Width 18.5 % (11.8-14.3); White Blood Cell 4.1 10^3/uL (4.4-10.8)
[2019-01-19 04:50] LABS: BUN/Creatinine Ratio 10.9; Calcium 11.4 mg/dL (8.5-10.1); Potassium 3.5 mmol/L (3.5-5.1)
[2019-01-19] MEDS: MIDAZOLAM DRIP 50 mg/50mL 50 ML IV SCH (06:16)
[2019-01-19] MEDS: ACCU-CHEK COMFORT CURVE STRIP VI SCH ×4 (06:52→21:39)
[2019-01-19] MEDS: InsuLIN REG 1unit/0.01ml Soln (100units/ml) SC SCH ×4 (07:00→21:48)
--- NOTE | 2019-01-19 07:00 | NUR ---
REPORT REPORT GIVEN TO ELLIOT FRAIRE
--- NOTE | 2019-01-19 09:09 | NUR ---
PATIENTS SISTER CALLED FOR UPDATE PROVIDED PASSWORD. UPDATED ON CURRENT STATUS.
--- NOTE | 2019-01-19 09:13 | NUR ---
[facility] NOTIFIED OF PATIENTS CASE REF # [id number]
[2019-01-19] MEDS: CARVEDILOL 12.5 MG TAB PO SCH ×2 (10:15→21:51)
[2019-01-19] MEDS: LEVETIRACETAM INJ 1,000 MG in D5W 5% 100 ML IV SCH ×2 (10:15→22:19)
[2019-01-19] MEDS: amLODIPine BESYLATE 5 MG TAB PO SCH (10:15)
[2019-01-19] MEDS: ASPirin 81 mg TAB PO SCH (10:15)
[2019-01-19] MEDS: ENOXAPARIN SOD 30 MG/0.3 ML SYRINGE SC SCH (10:15)
[2019-01-19] MEDS: FAMOTIDINE (10MG/ML) 2ML VL IV SCH ×2 (10:15→21:44)
--- NOTE | 2019-01-19 10:45 | NUR ---
PATIENTS AUNT CALLED PROVIDED PASSWORD. UPDATED ON CURRENT STATUS AND PLAN OF CARE
--- NOTE | 2019-01-19 11:30 | NUR ---
Nutrition Follow-up Notes Wt.: 82.0 kg Pt's intubated, non-sedated, no immediate family member at bedside when rounded earlier. Pt's currently NPO with EN support of Glucerna 1.2 Bjorn @ 30 ml/hr providing 864 kcal, 43 gms pro and 580 ml free water. Pt with inadequate EN support d/t low initiation rate delivery of concentrated formula aeb current EN infusion meets 38% to 47% of est caloric needs and 58% to 73% of est protein needs. Noted pt's for active Wound consult. Est. Needs: 1850 kcal to 2250 kcal (25-30 kcal/kgBW), 59 gms to 74 gms pro (0.8-1.0 gms/kgBW). Will continue to monitor pertinent labs and reassess nutrient need prn Labs: BUN 29 H, CREAT 2.65 H, ALB 1.8 L, GLU 257 H, CA 11.4 H Skin: Ulises scale 12, high risk, pt's medial sacrum ecchymosis per rn clinical documentation specialist. Pls refer to latest deputy editor in chief's notes for further details re:tx plans. GI: Pt had 50 ml BM 01/18 per rn clinical documentation specialist. PES: Increased nutrient needs r/t acute/chronic medical condition aeb intubated, NPO with EN support. Altered nutrition related lab values r/t current/chronic medical condition aeb hyperglycemia, elev. renal labs, hypercalcemia Will continue to monitor NPO status, EN tolerance, skin status, pertinent labs and weight trend. F/u in 2 to 3 days. Rec.: 1.) If still NPO with EN support, consider gradual increase on feeding rate of Glucerna 1.2 Bjorn to 70 ml/hr goal rate as tolerated when medically appropriate. 2.) If Albumin continues trending down with improved renal labs, consider Prostat 1 pkt BID. 3.) Consider daily MVI with minerals and Asc acid 500 mgs BID prn. 4.) Advance gradually to oral diet when medically appropriate. 5.) Refer pt to CDE/RD for further nutrition education and weight monitoring upon discharge. 6.) Continue current plan of care.
--- NOTE | 2019-01-19 11:50 | NUR ---
FAMILY CALLED A DIFFERENT SISTER CALLED FOR UPDATE, PROVIDED PASSWORD. UPDATED ON CURRENT STATUS AND PLAN OF CARE
--- NOTE | 2019-01-19 17:45 | NUR ---
PATIENTS SPOUSE TOMI CALLED FOR UPDATE PROVIDED PASSWORD, UPDATE ON CURRENT CONDITION.
--- NOTE | 2019-01-19 20:00 | NUR ---
PEN NOTES Assumed care of patient. Still not awake. Noted some movement of the lips and eyes when stimulated. [facility] was notified by jose ZARATE. Intubated on AC mode, FIO2 30%, breaths 12-14/min. Suctioned secretions - more orally than ETT. Oral care done. Tongue still protruding out and swollen. HR 70/min, BP elevated - will monitor. Afebrile. Left Nares NGT with ongoing tube feeding Glucerna at 30ml/hr - tolerated well. Heller catheter in placed with yellowish output with sediments noted. both hands and ankles with non pitting edema - elevated with pillows. IV lines: left wrist G20, right upper arm G18 - all flushed,patent and intact.Dressing CDI Repositioned. Both legs with SCDs Full assessment done -refer interventions
[2019-01-19] MEDS: hydrALAZINE HCL 20 MG/ML VL IV PRN (20:48)
--- NOTE | 2019-01-19 20:49 | NUR ---
BP HIGH Patient's SBP >170 mmHg for few readings, HR 68-70/min IV hydralazine given will continue to monitor
[2019-01-19] MEDS: METOCLOPRAMIDE HCL 5MG/ml INJ 2ml VIAL IV SCH (21:46)
[2019-01-19] MEDS: ATORVASTATIN 20 MG TAB PO SCH (21:50)
--- NOTE | 2019-01-19 23:06 | NUR ---
[facility] STA[facility] IS HERE TO GET UPDATE ABOUT THE PATIENT
--- NOTE | 2019-01-19 23:31 | NUR ---
[facility] According to [facility] staff, to call if there is any changes. But for now, she is still not a candidate
[2019-01-20] VITALS (35 sets, daily range): BP systolic 95–159; BP diastolic 61–93
--- NOTE | 2019-01-20 03:00 | NUR ---
Patient bathe/linen change Patient cleaned with CHG wipes. Skin integrity assessed for any changes. Optifoam changed. Z-guard cream applied in the perianal area. Linens changed. Patient repositioned for comfort.
[2019-01-20 04:30] LABS: Basophils # (auto) 0 uL; Eosinophils # (auto) 0.1 uL; Eosinophils % (auto) 1.3 % (0.0-7.0); Lymphocytes # (auto) 0.5 uL; Monocytes # (auto) 0.6 uL
[2019-01-20 04:33] LABS: Basophils % (auto) 0.7 % (0.0-2.0); Hemoglobin 9.7 g/dL (12.2-16.2); Lymphocytes % (auto) 9.1 % (10.0-50.0); Mean Corpuscular Hemoglobin 26.6 pg (28.0-32.0); Mean Corpuscular Hgb Conc. 33.3 g/dL (32.0-36.0); Monocytes % (auto) 12.3 % (0.0-12.0); Neutrophils # (auto) 3.9 uL; Neutrophils % (auto) 76.6 % (37.0-80.0); Platelet Count (auto) 217 10^3/uL (140-450); Red Blood Cells 3.62 10^6/uL (4.0-5.20); Red Cell Distribution Width 18.3 % (11.8-14.3)
[2019-01-20 04:53] LABS: Calcium 11.7 mg/dL (8.5-10.1); Potassium 3.7 mmol/L (3.5-5.1)
[2019-01-20 04:56] LABS: BUN/Creatinine Ratio 11.8
[2019-01-20] MEDS: METOCLOPRAMIDE HCL 5MG/ml INJ 2ml VIAL IV SCH ×3 (06:00→23:08)
[2019-01-20] MEDS: MIDAZOLAM DRIP 50 mg/50mL 50 ML IV SCH (06:16)
[2019-01-20] MEDS: ACCU-CHEK COMFORT CURVE STRIP VI SCH ×4 (06:38→22:00)
[2019-01-20] MEDS: InsuLIN REG 1unit/0.01ml Soln (100units/ml) SC SCH ×4 (06:40→23:11)
--- NOTE | 2019-01-20 07:20 | NUR ---
DR JOHNSON AT BEDSIDE
--- NOTE | 2019-01-20 07:30 | NUR ---
SIGNIFICANT OTHER, TOMI CALLED PROVIDED PASSWORD. UPDATED ON STATUS THROUGHOUT THE NIGHT. ADDRESSED CONCERNS
--- NOTE | 2019-01-20 08:15 | NUR ---
NEURO ASSESSED NEURO STATUS, PATIENT WITHDRAWALS FROM DEEP PAIN STIMULI. WHEN SUCTIONING ET TUBE, NO COUGH OR GAG IS NOTED. NEUROLOGIST AWARE
--- NOTE | 2019-01-20 08:16 | NUR ---
HIGH RESIDUALS RN CHECKED TUBE FEEDING RESIDUALS, GREATER THAN 60CC (PATIENT CURRENTLY RECEIVING 30CC/HR) WILL HOLD TUBE FEEDINGS AND REASSESS LATER
--- NOTE | 2019-01-20 08:50 | NUR ---
PATIENTS SISTER CHUCHO CALLED PROVIDED PASSWORD. UPDATED ON CURRENT STATUS. SISTER INFORMED RN THAT PATIENT HAS 2 ADULT CHILDREN, OUT OF STATE. ([place] AND [place]) AND THAT SHE WOULD BE INFORMING CHILDREN TO MAKE PLANS TO COME TO HERE
--- NOTE | 2019-01-20 10:02 | NUR ---
DR LOMAX AT BEDSIDE/ VENT CHANGES MD MADE AWARE OF ABSENT GAG / STATUS THROUGHOUT THE NIGHT MD MADE VENT CHANGES AT BEDSIDE, DECREASING RATE.WILL CONTINUE TO MONITOR CLOSELY
[2019-01-20] MEDS: LEVETIRACETAM INJ 1,000 MG in D5W 5% 100 ML IV SCH ×2 (10:26→23:08)
[2019-01-20] MEDS: ASPirin 81 mg TAB PO SCH (10:27)
[2019-01-20] MEDS: CARVEDILOL 12.5 MG TAB PO SCH ×2 (10:27→23:10)
[2019-01-20] MEDS: amLODIPine BESYLATE 5 MG TAB PO SCH (10:27)
[2019-01-20] MEDS: FAMOTIDINE (10MG/ML) 2ML VL IV SCH ×2 (10:28→23:08)
[2019-01-20] MEDS: ENOXAPARIN SOD 30 MG/0.3 ML SYRINGE SC SCH (10:28)
--- NOTE | 2019-01-20 15:50 | NUR ---
DR RODGERS AT BEDSIDE DISCUSSED PATIENTS STATUS WITH PATIENTS SISTER
[2019-01-20] MEDS: ATORVASTATIN 20 MG TAB PO SCH (23:12)
[2019-01-21] VITALS (29 sets, daily range): BP systolic 94–167; BP diastolic 63–100
--- NOTE | 2019-01-21 06:00 | NUR ---
CHARTED WRONG URINE OUTPUT ON PT.-SEE 0601 OUTPUT FOR CORRECTIONS.
[2019-01-21] MEDS: METOCLOPRAMIDE HCL 5MG/ml INJ 2ml VIAL IV SCH ×3 (06:33→22:44)
[2019-01-21] MEDS: ACCU-CHEK COMFORT CURVE STRIP VI SCH ×4 (06:33→22:41)
[2019-01-21] MEDS: InsuLIN REG 1unit/0.01ml Soln (100units/ml) SC SCH ×4 (06:34→22:43)
--- NOTE | 2019-01-21 08:00 | NUR ---
Opening shift note Report received from research consultant rn, morning assessment performed and documented. 53 year old female, resting in bed, mechanically ventilated, not sedated, unresponsive. HOB elevated greater than 30 degrees. ETT secured with Sarah, ventilator plugged into red outlet, Ambu bag at bedside, oral care and suction rendered. CATINA 2+ and sluggish with no cough and gag noted. No purposeful movements noted. NGT to left nare infusing Glucerna at a rate of 15 mls/hr with 10 mls residual. RN verified proper placement via auscultation with air bolus and assistance of luis f Kamara rn. Peripheral IV's intact and patent x2 with no s/s of infiltration or phlebitis noted-refer to IV spreadsheet for infusion specifics. Abdomen soft. F/C intact and draining to gravity yellow sediment urine. Flexi-seal patent and draining soft brown stool, SCD's to bilateral lower extremities active. Bed in lowest position, side rails up, bed brakes set, bed alarm set, all alarms audible, in direct view of nurses station, seizure precaution in place. Continue close monitoring.
--- NOTE | 2019-01-21 08:35 | NUR ---
Family updated on pt status Family of CARLOS MANUEL updated on patient's status and condition after password verification. All questions and concerns addressed. Louise verbalized understanding.
[2019-01-21] MEDS: ASPirin 81 mg TAB PO SCH (10:54)
[2019-01-21] MEDS: amLODIPine BESYLATE 5 MG TAB PO SCH (10:54)
[2019-01-21] MEDS: CARVEDILOL 12.5 MG TAB PO SCH ×2 (10:54→22:47)
[2019-01-21] MEDS: ENOXAPARIN SOD 30 MG/0.3 ML SYRINGE SC SCH (10:55)
[2019-01-21] MEDS: FAMOTIDINE (10MG/ML) 2ML VL IV SCH ×2 (10:55→22:45)
--- NOTE | 2019-01-21 11:30 | NUR ---
Nutrition Follow-up Notes Wt.: 82.0 kg Pt's intubated, non-sedated, no immediate family member at bedside when rounded earlier. Pt's currently NPO with EN support oh hold as pt had high residuals. per RN pt was on EN support with Glucerna 1.2 Bjorn @ 15 ml/hr providing 432 kcal, 21 gms pro and 290 ml free water. Est. Needs: 1850 kcal to 2250 kcal (25-30 kcal/kgBW), 59 gms to 74 gms pro (0.8-1.0 gms/kgBW). Will continue to monitor pertinent labs and reassess nutrient need prn Labs: BUN 32 H, CREAT 2.71 H, GLU 239 H, CA 11.7 H Skin: Ulises scale 11, high risk, pt's medial sacrum ecchymosis per casting repairer. Pls refer to latest sewer pipe offbearer's notes for further details re:tx plans. GI: Pt had 50 ml BM 01/18 per casting repairer. PES: Increased nutrient needs r/t acute/chronic medical condition aeb intubated, NPO with EN support. Altered nutrition related lab values r/t current/chronic medical condition aeb hyperglycemia, elev. renal labs, hypercalcemia Will continue to monitor NPO status, skin status, pertinent labs and weight trend. F/u in 2 to 3 days. Rec.: 1.) Resume feeding with Glucerna 1.2 Bjorn to 70 ml/hr goal rate as tolerated when medically appropriate. 2.) If Albumin continues trending down with improved renal labs, consider Prostat 1 pkt BID. 3.) Consider daily MVI with minerals and Asc acid 500 mgs BID prn. 4.) Advance gradually to oral diet when medically appropriate. 5.) Refer pt to CDE/RD for further nutrition education and weight monitoring upon discharge. 6.) Continue current plan of care.
[2019-01-21] MEDS: LEVETIRACETAM INJ 1,000 MG in D5W 5% 100 ML IV SCH ×2 (11:52→22:51)
--- NOTE | 2019-01-21 13:24 | NUR ---
Family updated on pt status Family of CARLOS MANUEL updated on patient's status and condition after password verification. All questions and concerns addressed. Josh verbalized understanding.
--- NOTE | 2019-01-21 19:13 | NUR ---
END OF SHIFT NOTE PATIENT LAYING IN BED, NON RESPONSIVE/NON SEDATED, MECHANICALLY VENTILATED. NO DISTRESS NOTED, RESPIRATIONS EVEN AND UNLABORED. FALL AND SAFETY PRECAUTION, ENDORSED CONTINUED CARE TO AUTO SERVICE REPRESENTATIVE RN.
--- NOTE | 2019-01-21 19:45 | NUR ---
OPEN NOTES Assumed care of patient.Report received from ELLIOT Jiménez patient not on any sedation, moves legs when stimulated. Hypoactive cough and gag noted. Pupils both sluggishly reactive to light. Intubated on AC mode, FIO2 30%, breaths 11-13/min. Patient has a lot of oral secretions - suctioned. Tongue swollen and protruding out. Oral care done. VS stable. Afebrile. Left Nares NGT with ongoing tube feeding Glucerna at 30ml/hr - tolerated well.Residual 15mls. Heller catheter in placed with yellowish output with sediments noted. IV lines- all flushed,patent and intact.Dressing CDI Repositioned. Both legs with SCDs Full assessment done -refer interventions
--- NOTE | 2019-01-21 20:35 | NUR ---
SISTER CALLED Patient's sister Mora called. Correct password given. Updated her of patient's condition. All questions answered. Verbalized understanding
[2019-01-21] MEDS: MIDAZOLAM DRIP 50 mg/50mL 50 ML IV SCH (20:58)
[2019-01-21] MEDS: ATORVASTATIN 20 MG TAB PO SCH (22:48)
[2019-01-22] VITALS (54 sets, daily range): BP systolic 112–160; BP diastolic 77–100
--- NOTE | 2019-01-22 | NUR ---
tube feeding Residual checked = 0 ml increased feeding to 35ml/hr
[2019-01-22 03:33] LABS: Basophils # (auto) 0 uL; Basophils % (auto) 0.2 % (0.0-2.0); Eosinophils # (auto) 0.1 uL; Eosinophils % (auto) 0.9 % (0.0-7.0); Hematocrit 28.3 % (36.0-46.0); Hemoglobin 9.3 g/dL (12.2-16.2); Lymphocytes # (auto) 0.8 uL; Lymphocytes % (auto) 9.3 % (10.0-50.0); Mean Corpuscular Hemoglobin 26.5 pg (28.0-32.0); Mean Corpuscular Hgb Conc. 32.9 g/dL (32.0-36.0); Mean Corpuscular Volume 80.7 fL (80.0-100.0); Monocytes # (auto) 0.6 uL; Monocytes % (auto) 7.2 % (0.0-12.0); Neutrophils # (auto) 6.9 uL; Neutrophils % (auto) 82.4 % (37.0-80.0); Platelet Count (auto) 214 10^3/uL (140-450); Red Cell Distribution Width 18.9 % (11.8-14.3); White Blood Cell 8.4 10^3/uL (4.4-10.8)
[2019-01-22 03:50] LABS: BUN/Creatinine Ratio 12.6; Calcium 11.5 mg/dL (8.5-10.1); Potassium 3.9 mmol/L (3.5-5.1)
--- NOTE | 2019-01-22 04:00 | NUR ---
Patient bathe/linen change Patient given a sponge bath. Skin integrity assessed for any changes. Linens changed. Patient repositioned for comfort.
--- NOTE | 2019-01-22 04:45 | NUR ---
TUBE FEEDING RESIDUAL CHECKED = 0ML INCREASED FEEDING TO 40ML/HR
[2019-01-22] MEDS: MIDAZOLAM DRIP 50 mg/50mL 50 ML IV SCH (06:16)
[2019-01-22] MEDS: ACCU-CHEK COMFORT CURVE STRIP VI SCH ×4 (07:05→22:00)
[2019-01-22] MEDS: METOCLOPRAMIDE HCL 5MG/ml INJ 2ml VIAL IV SCH ×3 (07:07→23:00)
[2019-01-22] MEDS: InsuLIN REG 1unit/0.01ml Soln (100units/ml) SC SCH ×4 (07:08→22:00)
--- NOTE | 2019-01-22 07:30 | NUR ---
REPORT RECEIVED FROM SALT OPERATOR NURSE. PATIENT RESTING IN BED INTUBATED WITH NO SEDATIONS. RESPIRATIONS EVEN AND UNLABORED. NO SIGNS OF ACUTE DISTRESS NOTED. BED IN LOW POSITION. WILL CONTINUE TO MONITOR.
[2019-01-22] MEDS: FAMOTIDINE (10MG/ML) 2ML VL IV SCH ×2 (09:27→23:00)
[2019-01-22] MEDS: ASPirin 81 mg TAB PO SCH (09:28)
[2019-01-22] MEDS: amLODIPine BESYLATE 5 MG TAB PO SCH (09:29)
[2019-01-22] MEDS: ENOXAPARIN SOD 30 MG/0.3 ML SYRINGE SC SCH (09:30)
[2019-01-22] MEDS: CARVEDILOL 12.5 MG TAB PO SCH ×2 (09:30→22:59)
--- NOTE | 2019-01-22 10:45 | NUR ---
DR JOHNSON AT BEDSIDE TO ASSESS PATIENT AND DISCUSS PLAN OF CARE. NO NEW ORDERS
--- NOTE | 2019-01-22 11:10 | NUR ---
DR LOMAX AT BEDSIDE TO ASSESS PATIENT AND DISCUSS PLAN OF CARE.
[2019-01-22] MEDS: LEVETIRACETAM INJ 1,000 MG in D5W 5% 100 ML IV SCH ×2 (11:15→22:59)
--- NOTE | 2019-01-22 12:20 | NUR ---
DR RODGERS AT BEDSIDE, NO NEW ORDERS AT THIS TIME.
--- NOTE | 2019-01-22 19:15 | NUR ---
OPENING Assumed care of patient not on any sedation, opens eyes when stimulated. Hypoactive cough and gag noted. Pupils both sluggishly reactive to light. intubated and tolerating ventilator, respirations even and unlabored. large amount of oral secretions suctioned. sr on table cover folder. Left Nare NGT with tube feeding Glucerna at 30ml/hr residual of 65. Heller catheter patent and draining with yellow urine with sediment peripheral ivs all flushed, patent and intact. Dressing CDI. sacral area dry with gentle optifoam dressing in place, sfoiya area with zguard. Both legs with SCDs. all bony prominences off loaded with pillows. full assessment in interventions. bed in lowest locked position, safety measures and seizure precautions in place. vss. will continue to monitor.
[2019-01-22] MEDS: ATORVASTATIN 20 MG TAB PO SCH (22:58)
[2019-01-23] VITALS (46 sets, daily range): BP systolic 104–174; BP diastolic 71–93
--- NOTE | 2019-01-23 04:45 | NUR ---
FULL BED BATH AND LINEN CHANGE DONE AT THIS TIME, SKIN ASSESSED FOR ANY CHANGES. TOLERATED WELL. VSS. REPOSITIONED FOR COMFORT. WILL CONTINUE TO MONITOR.
[2019-01-23] MEDS: METOCLOPRAMIDE HCL 5MG/ml INJ 2ml VIAL IV SCH ×3 (06:06→21:59)
[2019-01-23] MEDS: MIDAZOLAM DRIP 50 mg/50mL 50 ML IV SCH (06:16)
[2019-01-23] MEDS: ACCU-CHEK COMFORT CURVE STRIP VI SCH ×4 (06:19→22:11)
[2019-01-23] MEDS: InsuLIN REG 1unit/0.01ml Soln (100units/ml) SC SCH ×4 (06:19→22:11)
--- NOTE | 2019-01-23 07:35 | NUR ---
OPENING NOTE SHIFT REPORT RECEIVED AND ASSUMED CARE OF PT FROM PAULINE ZARATE
--- NOTE | 2019-01-23 09:00 | NUR ---
PT IS NOT ON SEDATION BUT REMAINS UNRESPONSIVE AT THIS TIME. PT HAS POSITIVE COUGH AND GAG WITH PUPILS SLUGGISH. PT IS ON VENTILATOR ON A/C RATE 10, TV 450, FI02 30%, PEEP 5. LUNG SOUNDS CLEAR TO AUSCULTATION. NO S/S OF DISTRESS. WILL CONTINUE TO MONITOR
[2019-01-23] MEDS: ENOXAPARIN SOD 30 MG/0.3 ML SYRINGE SC SCH (10:16)
[2019-01-23] MEDS: FAMOTIDINE (10MG/ML) 2ML VL IV SCH ×2 (10:16→21:59)
[2019-01-23] MEDS: ASPirin 81 mg TAB PO SCH (10:17)
[2019-01-23] MEDS: LEVETIRACETAM INJ 1,000 MG in D5W 5% 100 ML IV SCH ×2 (10:17→22:00)
[2019-01-23] MEDS: amLODIPine BESYLATE 5 MG TAB PO SCH (10:31)
[2019-01-23] MEDS: CARVEDILOL 12.5 MG TAB PO SCH ×2 (10:32→22:00)
--- NOTE | 2019-01-23 12:00 | NUR ---
Nutrition Follow-up Notes Wt.: 84.4 kg Pt's intubated, non-sedated, no immediate family member at bedside when rounded earlier. Pt's currently NPO with EN support of Glucerna 1.2 Bjorn @ 40 ml/hr providing 1152 kcal, 57 gms pro. pt with inadequate EN support as it meets 51-62% kcals and 77-96% proteins Est. Needs: 1850 kcal to 2250 kcal (25-30 kcal/kgBW), 59 gms to 74 gms pro (0.8-1.0 gms/kgBW). Will continue to monitor pertinent labs and reassess nutrient need prn Labs: BUN 37 H, CREAT 2.93 H, GLU 227 H, CA 11.5 H Skin: Ulises scale 11, high risk, pt's medial sacrum ecchymosis per machine builder. Pls refer to latest kiln tester's notes for further details re:tx plans. GI: Pt had 50 ml BM 01/18 per machine builder. PES: Increased nutrient needs r/t acute/chronic medical condition aeb intubated, NPO with EN support. Altered nutrition related lab values r/t current/chronic medical condition aeb hyperglycemia, elev. renal labs, hypercalcemia Will continue to monitor NPO status, skin status, pertinent labs and weight trend. F/u in 2 to 3 days. Rec.: 1.) Advance feeding with Glucerna 1.2 Bjorn to 70 ml/hr goal rate as tolerated when medically appropriate. 2.) If Albumin continues trending down with improved renal labs, consider Prostat 1 pkt BID. 3.) Consider daily MVI with minerals and Asc acid 500 mgs BID prn. 4.) Advance gradually to oral diet when medically appropriate. 5.) Refer pt to CDE/RD for further nutrition education and weight monitoring upon discharge. 6.) Continue current plan of care.
[2019-01-23] MEDS: SOD CHL 0.45% 1,000 ML IV SCH (16:58)
--- NOTE | 2019-01-23 17:30 | NUR ---
PERICARE, BM, AND LINEN CHANGE CLEANSED AREA AROUND RECTAL TUBE AND MIKE AREA WITH SOAP AND WATER. ZGUARD APPLIED AND PARTIAL LINEN CHANGE DONE. PT TOLERATED WELL. WILL CONTINUE TO MONITOR
--- NOTE | 2019-01-23 19:00 | NUR ---
200 ML OUTPUT DURING SHIFT. ADVISED NIGHT RN TO OBTAIN PENDING URINE SAMPLE AND BLADDER SCAN FOR POSSIBLE RETENTION.
--- NOTE | 2019-01-23 19:10 | NUR ---
OPENING Assumed care of patient not on any sedation. Hypoactive cough and gag noted. Pupils both sluggishly reactive to light. intubated and tolerating ventilator, respirations even and unlabored. large amount of oral secretions suctioned. sr on radiation monitor. Left Nare NGT with residual of 35mls. Heller catheter patent and draining with yellow urine with sediment peripheral ivs both flushed, patent and intact .45 ns running at 100mls/hr. iv Dressings CDI. sacral area with minimal serous sanguinous drainage with gentle optifoam dressing in place, sofiya area with zguard. Both legs with SCDs. all bony prominences off loaded with pillows. full assessment in interventions. bed in lowest locked position, safety measures and seizure precautions in place. vss. will continue to monitor.
--- NOTE | 2019-01-23 19:20 | NUR ---
CLOSING NOTE SHIFT REPORT GIVE BACK AND CARE ENDORSED TO PAULINE ZARATE
[2019-01-23] MEDS: ATORVASTATIN 20 MG TAB PO SCH (21:59)
[2019-01-23] MEDS: Glucerna 1.2 Cal 1Liter BOTTLE GT SCH (22:06)
[2019-01-24] VITALS (56 sets, daily range): BP systolic 105–176; BP diastolic 69–101
[2019-01-24] MEDS: SOD CHL 0.45% 1,000 ML IV SCH ×3 (03:22→22:30)
--- NOTE | 2019-01-24 04:38 | NUR ---
FULL BED BATH AND LINEN CHANGE DONE AT THIS TIME, SKIN ASSESSED FOR ANY CHANGES, NO NEW BREAKDOWN NOTED. TOLERATED WELL. VSS. REPOSITIONED FOR COMFORT. WILL CONTINUE TO MONITOR.
[2019-01-24 05:10] LABS: BUN/Creatinine Ratio 14.1; Calcium 11.3 mg/dL (8.5-10.1); Potassium 3.8 mmol/L (3.5-5.1)
[2019-01-24] MEDS: MIDAZOLAM DRIP 50 mg/50mL 50 ML IV SCH (05:40)
[2019-01-24] MEDS: METOCLOPRAMIDE HCL 5MG/ml INJ 2ml VIAL IV SCH ×3 (05:44→21:31)
[2019-01-24] MEDS: hydrALAZINE HCL 20 MG/ML VL IV PRN (05:47)
[2019-01-24] MEDS: InsuLIN REG 1unit/0.01ml Soln (100units/ml) SC SCH ×4 (06:20→21:33)
[2019-01-24] MEDS: ACCU-CHEK COMFORT CURVE STRIP VI SCH ×4 (06:20→21:32)
--- NOTE | 2019-01-24 06:29 | NUR ---
UA SENT AT THIS TIME
[2019-01-24 06:37] LABS: Urine Amorphous Crystal FEW /hpf (None Seen); Urine Bacteria NONE SEEN /hpf (None Seen); Urine Blood 2+ /uL (Negative); Urine Specific Gravity 1.013 (1.001-1.035); Urine WBC 87 /hpf (0 - 5)
--- NOTE | 2019-01-24 07:05 | NUR ---
OPENING NOTE SHIFT REPORT GET BACK AND ASSUMED CARE OF PT FROM PAULINE ZARATE
[2019-01-24 07:20] LABS: Protein, Urine 130.7 mg/dL (0.0-11.9)
--- NOTE | 2019-01-24 09:00 | NUR ---
PT'S SISTER CHUCHO CALLED PASSWORD VERIFIED. UPDATED ON PT STATUS. STATES WILL SPEAK TO PT'S SONS FOR DECISION
--- NOTE | 2019-01-24 09:30 | NUR ---
PT'S SON ARSENIO VANCE STATES HE WILL BE IN TONIGHT TO MAKE DECISION ON PT'S BEHALF. WILL ADVISE KAYLI ZARATE
--- NOTE | 2019-01-24 09:50 | NUR ---
POT'S SISTER CHUCHO CALLED AND STATED THAT HER AND PT'S SON ARSENIO WILL BE IN TONIGHT TO MAKE DECISION ON PT'S BEHALF. WILL REPORT TO KAYLI RN
[2019-01-24] MEDS: ASPirin 81 mg TAB PO SCH (10:09)
[2019-01-24] MEDS: LEVETIRACETAM INJ 1,000 MG in D5W 5% 100 ML IV SCH ×2 (10:09→21:31)
[2019-01-24] MEDS: FAMOTIDINE (10MG/ML) 2ML VL IV SCH ×2 (10:09→21:31)
[2019-01-24] MEDS: amLODIPine BESYLATE 5 MG TAB PO SCH (10:10)
[2019-01-24] MEDS: CARVEDILOL 12.5 MG TAB PO SCH ×2 (10:12→21:32)
--- NOTE | 2019-01-24 10:20 | NUR ---
DR. GUTIERREZ AT BEDSIDE AWAITING ON SONS AND FAMILY'S PLAN FOR PT. ADVISED THAT THEY STATED THAT ARSENIO THE YOUNGEST SON WILL COME IN TONIGHT AFTER 8PM. PHYSICIAN AWARE. NO NEW ORDERS AT THIS TIME
--- NOTE | 2019-01-24 12:30 | NUR ---
WOUND CARE NOTE: Weekly reevaluation by wound care team. Patient on skin integrity rounding due to low Ulises, intubation status and pressure injury to sacrum. Patient remains intubated and is not sedated. Patient with no signs or symptoms of pain. Patient's sacrum is now open, shallow and pink consistent with progression to stage 2. Patient's son to be in later tonight to discuss plan of care. RECOMMENDATIONS: Nursing to continue with previous wound/skin care orders; Nursing to cleanse sacrum with mild soap and water, pat dry, apply ZGUARD BID/PRN soiling, cover with OPTIFOAM GENTLE, change every other day/PRN soiling; wound care team to continue to follow.
--- NOTE | 2019-01-24 18:45 | NUR ---
SISTER'S PT CHUCHO AT BEDSIDE STATES ARSENIO PT'S SON WILL BE COMING TOMORROW MORNING TO MAKE A DECISION ON BEHALF OF THE PATIENT
--- NOTE | 2019-01-24 19:05 | NUR ---
CLOSING NOTE SHIFT REPORT GIVE BACK AND CARE ENDORSED TO PAULINE ZARATE
--- NOTE | 2019-01-24 19:42 | NUR ---
OPENING Assumed care of patient not on any sedation. Hypoactive cough and gag noted. Pupils both sluggishly reactive to light. intubated and tolerating ventilator, respirations even and unlabored. large amount of oral secretions suctioned. sr on diagnostic cardiac sonographer. Left Nare NGT with residual of 10mls. Heller catheter patent and draining with yellow urine with sediment peripheral ivs both flushed, patent and intact. .45 ns running at 100mls/hr. iv Dressings CDI. sacral area with minimal serous sanguinous drainage with gentle optifoam dressing in place, sofiya area clean and dry with zguard. Both legs with SCDs. all bony prominences off loaded with pillows. full assessment in interventions. bed in lowest locked position, safety measures and seizure precautions in place. vss. no pain observed. will continue to monitor.
--- NOTE | 2019-01-24 20:12 | NUR ---
AT BEDSIDE CHUCHO AT BEDSIDE, UPDATED ON PATIENTS STATUS, ALL QUESTIONS AND CONCERNS ADDRESSED AT THIS TIME. PER SISTER, WAITING ON ARSENIO THE PTS SON TO DRIVE FROM [place] TO SEE PT DEDE.
[2019-01-24] MEDS: ATORVASTATIN 20 MG TAB PO SCH (21:32)
[2019-01-25] VITALS (68 sets, daily range): BP systolic 117–182; BP diastolic 71–101
[2019-01-25] MEDS: SOD CHL 0.45% 1,000 ML IV SCH ×2 (01:15→11:58)
[2019-01-25 04:27] LABS: BUN/Creatinine Ratio 14.4; Calcium 11.5 mg/dL (8.5-10.1); Potassium 3.7 mmol/L (3.5-5.1)
[2019-01-25] MEDS: METOCLOPRAMIDE HCL 5MG/ml INJ 2ml VIAL IV SCH ×3 (05:32→21:34)
[2019-01-25] MEDS: MIDAZOLAM DRIP 50 mg/50mL 50 ML IV SCH (05:34)
[2019-01-25] MEDS: ACCU-CHEK COMFORT CURVE STRIP VI SCH ×4 (06:10→21:35)
[2019-01-25] MEDS: InsuLIN REG 1unit/0.01ml Soln (100units/ml) SC SCH ×4 (06:11→21:35)
--- NOTE | 2019-01-25 07:15 | NUR ---
OPENING NOTE SHIFT REPORT GET BACK AND ASSUMED CARE OF PT FROM PAULINE ZARATE
--- NOTE | 2019-01-25 07:45 | NUR ---
DR. JOHNSON AT BEDSIDE NO NEW ORDERS AT THIS TIME.
[2019-01-25] MEDS: CARVEDILOL 12.5 MG TAB PO SCH ×2 (09:38→21:35)
[2019-01-25] MEDS: ASPirin 81 mg TAB PO SCH (09:39)
[2019-01-25] MEDS: FAMOTIDINE (10MG/ML) 2ML VL IV SCH ×2 (09:39→21:34)
[2019-01-25] MEDS: amLODIPine BESYLATE 5 MG TAB PO SCH (09:39)
[2019-01-25] MEDS: LEVETIRACETAM INJ 1,000 MG in D5W 5% 100 ML IV SCH ×2 (10:33→21:36)
--- NOTE | 2019-01-25 12:12 | NUR ---
Nutrition Follow-up Notes Wt.: 85.0 kg today. Pt's intubated, non-sedated, no immediate family member at bedside when rounded this morning. Pt's currently NPO with EN support of Glucerna 1.2 Bjorn @ 15 ml/hr providing 432 kcal, 22 gms pro and 290 ml free water, tolerates feeding with 10 ml residuals noted this morning, however can't tolerate further when increased to 40 ml/hr, per nursing. Pt with inadequate EN support d/t low initiation rate delivery of concentrated formula aeb current EN infusion meets 19% to 23% of est caloric needs and 30% to 37% of est proteins needs. Est. Needs: 1850 kcal to 2250 kcal (25-30 kcal/kgBW), 59 gms to 74 gms pro (0.8-1.0 gms/kgBW). Will continue to monitor pertinent labs and reassess nutrient need prn Labs: Gluc 166 H, BUN 36 H, Cr 2.50 H, Ca 11.5 H, Tpro 5.6 L, Alb 1.8 L Skin: Ulises scale 9, high risk, pt's posterior sacrum skin tear per political advisor. Pls refer to latest americ[employer] studies professor's notes for further details re:tx plans. GI: Pt had 50 ml stool output this morning per political advisor. PES: Increased nutrient needs r/t acute/chronic medical condition aeb intubated, NPO with EN support. Altered nutrition related lab values r/t current/chronic medical condition aeb hyperglycemia, elev. renal labs, hypercalcemia Will continue to monitor NPO status, EN tolerance, skin status, pertinent labs and weight trend. F/u in 2 to 3 days. Rec.: 1.) If still NPO with EN support, consider gradual increase feeding rate with Glucerna 1.2 Bjorn to 70 ml/hr goal rate as tolerated when medically appropriate. 2.) If Albumin continues trending down with improved renal labs, consider Prostat 1 pkt BID. 3.) Consider daily MVI with minerals and Asc acid 500 mgs BID prn. 4.) If pt's unable to tolerate Glucerna 1.2 Bjorn >40 ml/hr, consider change EN formula to Vital AF 1.2 Bjorn @ 60 ml/hr goal rate as tolerated. 5.) Advance gradually to oral diet when medically appropriate. 6.) Refer pt to CDE/RD for further nutrition education and weight monitoring upon discharge. 7.) Continue current plan of care.
--- NOTE | 2019-01-25 15:30 | NUR ---
CAMERON CESAR AT BEDSIDE IS TAKING TIME TO BE WITH PT ALONE. STATES WILL ADVISE THIS RN OF DECISION WHEN DECISION IS MADE AFTER TIME WITH PT.
--- NOTE | 2019-01-25 18:00 | NUR ---
DR. RODGERS AT BEDSIDE WITH SON ARSENIO. SON ARSENIO AT BEDSIDE AND HAS STATED THAT HE WOULD LIKE PT FULL CODE WITH TRACH AND PEG. CODE STATUS SIGNED.
--- NOTE | 2019-01-25 19:05 | NUR ---
CLOSING NOTE SHIFT REPORT GIVE BACK AND CARE ENDORSED TO PAULINE ZARATE
--- NOTE | 2019-01-25 19:30 | NUR ---
OPENING Assumed care of patient with no sedation. Hypoactive cough and gag noted. Pupils both sluggishly reactive to light, opens eyes spontaneously with no tracking. intubated and tolerating ventilator, respirations even and unlabored. large amount of oral secretions suctioned. sr on monitoring engineer. Left Nare NGT with residual of 10mls, feeding running at 15mls/hr. Heller catheter patent and draining with yellow urine with sediment peripheral ivs both flushed, patent and intact. .45 ns running at 100mls/hr. iv Dressings CDI. sacral area with minimal serous sanguinous drainage with gentle optifoam dressing in place, sofiya area clean and dry with zguard. Both legs with SCDs. all bony prominences off loaded with pillows. full assessment in interventions. bed in lowest locked position, safety measures and seizure precautions in place. vss. no pain observed. will continue to monitor.
[2019-01-25] MEDS: ATORVASTATIN 20 MG TAB PO SCH (21:34)
[2019-01-26] VITALS (100 sets, daily range): BP systolic 105–194; BP diastolic 69–105
[2019-01-26] MEDS: SOD CHL 0.45% 1,000 ML IV SCH ×2 (01:46→10:30)
--- NOTE | 2019-01-26 01:56 | NUR ---
FULL BED BATH AND LINEN CHANGE DONE AT THIS TIME, SKIN ASSESSED FOR ANY CHANGES, SACRAL AREA CONTINUES TO BE REDDENED AND OPEN, CLEANED GENTLY, APPLIED NEW OPTIFOAM GENTLE DRESSING AND Z GUARD FOR SKIN PROTECTION. TURNING LEFT TO RIGHT TO KEEP PRESSURE OFF SACRAL AREA. FLEXI-SEAL IN PLACE, CLEANED. MIKE AREA REDDENED WITH THIN SKIN, PATTED CLEAN AND PATTED DRY, Z GUARD IN BETWEEN THIGHS FOR PROTECTION. TOLERATED WELL. VSS. REPOSITIONED FOR COMFORT, ALL BONY PROMINENCES OFF LOADED WITH PILLOW TO PREVENT PRESSURE AREAS. WILL CONTINUE TO MONITOR.
[2019-01-26] MEDS: hydrALAZINE HCL 20 MG/ML VL IV PRN ×2 (05:04→21:24)
--- NOTE | 2019-01-26 05:08 | NUR ---
IV removal IV DC'd with clean sterile technique, catheter fully intact. Pressure dressing applied to LEFT HAND. Patient tolerated well. CLEAN, DRY, INTACT.
[2019-01-26] MEDS: METOCLOPRAMIDE HCL 5MG/ml INJ 2ml VIAL IV SCH ×3 (05:19→21:30)
[2019-01-26] MEDS: MIDAZOLAM DRIP 50 mg/50mL 50 ML IV SCH (05:20)
[2019-01-26] MEDS: InsuLIN REG 1unit/0.01ml Soln (100units/ml) SC SCH ×3 (06:13→18:06)
[2019-01-26] MEDS: ACCU-CHEK COMFORT CURVE STRIP VI SCH ×3 (06:13→18:05)
--- NOTE | 2019-01-26 07:30 | NUR ---
DR CALVO VISITS - NO NEW ORDERS RECEIVED.
--- NOTE | 2019-01-26 08:28 | NUR ---
DR JOHNSON VISITS - NO NEW ORDERS RECEIVED.
--- NOTE | 2019-01-26 09:00 | NUR ---
TF RESIDUAL 45ML - DECREASED TF RATE TO 20ML/HOUR.
[2019-01-26 09:02] LABS: Basophils # (auto) 0 uL; Basophils % (auto) 0.3 % (0.0-2.0); Eosinophils # (auto) 0.1 uL; Eosinophils % (auto) 1.1 % (0.0-7.0); Hematocrit 27.3 % (36.0-46.0); Hemoglobin 8.9 g/dL (12.2-16.2); Lymphocytes # (auto) 0.4 uL; Lymphocytes % (auto) 5.1 % (10.0-50.0); Mean Corpuscular Hemoglobin 26.2 pg (28.0-32.0); Mean Corpuscular Hgb Conc. 32.4 g/dL (32.0-36.0); Mean Corpuscular Volume 81.1 fL (80.0-100.0); Monocytes # (auto) 0.5 uL; Monocytes % (auto) 5.4 % (0.0-12.0); Neutrophils # (auto) 7.6 uL; Neutrophils % (auto) 88.1 % (37.0-80.0); Platelet Count (auto) 216 10^3/uL (140-450); Red Blood Cells 3.37 10^6/uL (4.0-5.20); Red Cell Distribution Width 18.7 % (11.8-14.3); White Blood Cell 8.7 10^3/uL (4.4-10.8)
[2019-01-26 09:26] LABS: BUN/Creatinine Ratio 15.2; Calcium 11.4 mg/dL (8.5-10.1); Potassium 3.7 mmol/L (3.5-5.1)
--- NOTE | 2019-01-26 10:00 | NUR ---
UNABLE TO OBTAIN ORAL OR AXILLARY TEMP READING - BEAR HUGGER APPLIED.
[2019-01-26] MEDS ORDERED: DEXTROSE (50%) 50ML SYRG IV PRN (10:15)
--- NOTE | 2019-01-26 10:50 | NUR ---
PATIOENT'S SON, SON'S FIANCE AND COUSIN VISIT - UPDATED ON PATIENT CONDITION - VERBALIZED UNDERSTANDING.
[2019-01-26] MEDS: CARVEDILOL 12.5 MG TAB PO SCH ×2 (11:00→21:30)
--- NOTE | 2019-01-26 11:20 | NUR ---
Felipe COON VISITS ET EXAMINES PATIENT - NO NEW ORDERS RECEIVED.
[2019-01-26] MEDS: amLODIPine BESYLATE 5 MG TAB PO SCH (11:30)
[2019-01-26] MEDS: ASPirin 81 mg TAB PO SCH (11:42)
[2019-01-26] MEDS: FAMOTIDINE (10MG/ML) 2ML VL IV SCH ×2 (11:42→21:28)
[2019-01-26] MEDS: LEVETIRACETAM INJ 1,000 MG in D5W 5% 100 ML IV SCH ×2 (11:48→21:28)
--- NOTE | 2019-01-26 12:19 | NUR ---
Midline Placement: Patients family at bedside educated on need for midline placement. All risks and benefits explained and all questions and concerns addresses prior to procedure. 18g/10cm midline inserted via left brachial vein using Ultrasound. Sterile technique utilized. Blood return obtained from lumen and flushed easily with NS using proper technique. Midline secured with saline lock; biodisc and occlusive dressing applied. Primary RN notified. Midline lot #[id number]
--- NOTE | 2019-01-26 13:00 | NUR ---
TF RESIDUAL 100ML - TF HELD.
--- NOTE | 2019-01-26 13:30 | NUR ---
DR BANG VISITS AND EXAMINES PATIENT - NO NEW ORDERS RECEIVED.
--- NOTE | 2019-01-26 15:45 | NUR ---
ELECTROENCEPHALOGRAM COMPLETED AT BEDSIDE. RN FADUMO AWARE.
--- NOTE | 2019-01-26 17:00 | NUR ---
RESIDUAL 0 - TF RE-STARTED AT 20 ML/HOUR.
--- NOTE | 2019-01-26 17:30 | NUR ---
DR LOMAX VISITS - NO NEW ORDERS RECEIVED.
--- NOTE | 2019-01-26 19:41 | NUR ---
DR JOHNSON MET WITH PATIENT'S SON, CRIS AND CLOSE FRIEND - DISCUSSED PATIENT CONDITION AND PROGNOSIS - ALL VERBALIZED UNDERSTANDING - ORDERS RECEIVED FOR CODE STATUS CHANGE TO DNR. SUPPORT OFFERED.
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
[2019-01-26] MEDS: ATORVASTATIN 20 MG TAB PO SCH (21:30)
--- NOTE | 2019-01-26 22:00 | NUR ---
REPOSITIONED TO RIGHT SIDE. ORAL CARE. ETT SUCTIONED FOR NO SECRETIONS. LUNGS CLEAR. ABDOMEN SOFT. NO BOWEL SOUNDS. RECTAL TUBE NOT PUTTING OUT MUCH. TUBE FEED OFF DUE TO HIGH RESIDUALS. DOES NOT OPEN EYES TO STIMULI. PUPILS SMALL AND SLUGGISH. DOES NOT WITHDRAW TO PAINFUL STIMULI. PERIPHERAL PULSES PALPABLE. EXTREMITIES WARM. NSR WITHOUT ECTOPY. NSR WITHOUT ECTOPY
[2019-01-27] VITALS (94 sets, daily range): BP systolic 109–201; BP diastolic 76–104
--- NOTE | 2019-01-27 | NUR ---
NO BLINK. NO COUGH. TONGUE DRY/HARD AND EXTENDED OUTSIDE THE MOUTH. ORAL CARE DONE. LUNGS CLEAR. RESIDUAL FROM THE NGT IS 30CC OF GREEN LIQUID. RESTARTED TUBE FEEDING AT 20CC/HR. RECTAL TUBE NOT PUTTING OUT MUCH. DOES NOT WITHDRAW EXTREMITIES TO PAIN. THE ONE TIME DOSE OF HYDRALAZINE BROUGHT THE BLOOD PRESSURE DOWN WITHIN A NORMAL RANGE.
[2019-01-27] MEDS: SOD CHL 0.45% 1,000 ML IV SCH ×3 (00:51→20:56)
--- NOTE | 2019-01-27 02:44 | NUR ---
WITHDRAWS EXTREMITIES TO PAINFUL STIMULI. NO BABINSKI. EYES OPENED WHEN PINCHING FINGER BED. PUPILS PINPOINT.
--- NOTE | 2019-01-27 03:28 | NUR ---
AM LABS DRAWN
[2019-01-27 04:02] LABS: Basophils # (auto) 0 uL; Basophils % (auto) 0.5 % (0.0-2.0); Eosinophils # (auto) 0.1 uL; Eosinophils % (auto) 1.1 % (0.0-7.0); Hematocrit 26.8 % (36.0-46.0); Hemoglobin 8.7 g/dL (12.2-16.2); Lymphocytes # (auto) 0.6 uL; Lymphocytes % (auto) 8.6 % (10.0-50.0); Mean Corpuscular Hemoglobin 26.3 pg (28.0-32.0); Mean Corpuscular Hgb Conc. 32.4 g/dL (32.0-36.0); Mean Corpuscular Volume 80.9 fL (80.0-100.0); Monocytes # (auto) 0.5 uL; Monocytes % (auto) 7.3 % (0.0-12.0); Neutrophils # (auto) 5.7 uL; Neutrophils % (auto) 82.5 % (37.0-80.0); Platelet Count (auto) 214 10^3/uL (140-450); Red Blood Cells 3.31 10^6/uL (4.0-5.20)
[2019-01-27 04:17] LABS: BUN/Creatinine Ratio 14.2; Calcium 11.3 mg/dL (8.5-10.1); Potassium 3.8 mmol/L (3.5-5.1)
--- NOTE | 2019-01-27 04:51 | NUR ---
CHG BATH. COMPLETE LINEN CHANGE
[2019-01-27] MEDS: ACCU-CHEK COMFORT CURVE STRIP VI SCH ×4 (05:29→18:15)
[2019-01-27] MEDS: METOCLOPRAMIDE HCL 5MG/ml INJ 2ml VIAL IV SCH ×3 (05:29→23:02)
[2019-01-27] MEDS: InsuLIN REG 1unit/0.01ml Soln (100units/ml) SC SCH ×4 (05:39→18:00)
[2019-01-27] MEDS: MIDAZOLAM DRIP 50 mg/50mL 50 ML IV SCH (07:28)
--- NOTE | 2019-01-27 08:00 | NUR ---
TF HELD DUE TO HIGH RESIDUALS X 2 DAYS.
[2019-01-27] MEDS: LEVETIRACETAM INJ 1,000 MG in D5W 5% 100 ML IV SCH ×2 (10:26→23:05)
[2019-01-27] MEDS: FAMOTIDINE (10MG/ML) 2ML VL IV SCH ×2 (10:30→23:05)
[2019-01-27] MEDS: ASPirin 81 mg TAB PO SCH (10:30)
[2019-01-27] MEDS: amLODIPine BESYLATE 5 MG TAB PO SCH (10:31)
[2019-01-27] MEDS: CARVEDILOL 12.5 MG TAB PO SCH ×2 (10:32→23:04)
--- NOTE | 2019-01-27 11:23 | NUR ---
Nutrition Follow-up Notes Wt.: 89.2 kg today. Noted 4.2 kg weight gain in last 2 days likely d/t ? fluid retention aeb positive I & Os for past few days. Pt's intubated, non-sedated, no immediate family member at bedside when rounded earlier. Pt's currently NPO with EN support temporarily held d/t high residuals noted, per nursing. Pt's previously on Glucerna 1.2 Bjorn @ 20 ml/hr providing 576 kcal, 29 gms pro and 386 ml free water. Est. Needs: 1850 kcal to 2250 kcal (25-30 kcal/kgBW), 59 gms to 74 gms pro (0.8-1.0 gms/kgBW). Will continue to monitor pertinent labs and reassess nutrient need prn Labs: Gluc 175 H, Na 135 L, BUN 31 H, Cr 2.18 H, Ca 11.3 H; Tpro 5.6 L, Alb 1.8 L, AST 61 H Skin: Ulises scale 13, mod risk, pt's proximal sacrum DTI per forcer maker. Pls refer to latest director of vital statistics's notes for further details re:tx plans. GI: Pt had 2x BM 01/15/19, had 100 gastric drainage output this morning per forcer maker. PES: Increased nutrient needs r/t acute/chronic medical condition aeb intubated, NPO with EN support. Altered nutrition related lab values r/t current/chronic medical condition aeb hyperglycemia, elev. renal labs, hypercalcemia Will continue to monitor NPO status, skin status, pertinent labs and weight trend. F/u in 2 to 3 days. Rec.: 1.) If still NPO, consider to resume with EN support at lower rate and gradually increase feeding rate with Glucerna 1.2 Bjorn to 70 ml/hr goal rate as tolerated when medically appropriate. 2.) If Albumin continues trending down with improved renal labs, consider Prostat 1 pkt BID. 3.) Consider daily MVI with minerals and Asc acid 500 mgs BID prn. 4.) If pt's unable to tolerate Glucerna 1.2 Bjorn >40 ml/hr, consider change EN formula to Vital AF 1.2 Bjorn @ 60 ml/hr goal rate as tolerated. 5.) Advance gradually to oral diet when medically appropriate. 6.) Refer pt to CDE/RD for further nutrition education and weight monitoring upon discharge. 7.) Continue current plan of care.
--- NOTE | 2019-01-27 15:00 | NUR ---
DR BANG VISIT - NO NEW ORDERS RECEIVED.
--- NOTE | 2019-01-27 17:30 | NUR ---
DR LOMAX VISITS - NO NEW ORDERS RECEIVED.
--- NOTE | 2019-01-27 18:00 | NUR ---
BLOOD SUGAR 138 - TRENDING DOWNWARD GLUCERNA RE-STARTED AT 15ML/HR PER OG TUBE.
--- NOTE | 2019-01-27 19:00 | NUR ---
DR JOHNSON VISITS AND EXAMINES PATIENT - NO NEW ORDERS RECEIVED.
--- NOTE | 2019-01-27 19:20 | NUR ---
OPENING Assumed care of female patient orally intubated no sedation. opens eyes when stimulated. Hypoactive cough and gag noted. Pupils both sluggishly reactive to light. respirations even and unlabored. large amount of oral secretions suctioned. pt is on icu monitors. L NGT, tube feeding held at this time due to feeding residual of 80ml. Heller catheter hanging below bladder, patent and draining yellow urine with sediment to gravity. r upper arm iv midline, l upper arm iv midline peripheral, all ivs flushed, patent and dressing is intact, iv sites appears asymptomatic at this time. open wound to the sacrum covered with optifoam dressing, flexiseal in place, skin around flexiseal appears reddened and irritated.zgaurd to sofiya area. Both legs with SCDs. all bony prominences off loaded with pillows for comfort and safety. full assessment in interventions. bed in lowest position, wheels locked, hob40*, pt is in full view of rn station, safety measures and seizure precautions in place. vs are stable at this time. will continue to care for and monitor.
[2019-01-27] MEDS: hydrALAZINE HCL 20 MG/ML VL IV PRN (21:15)
[2019-01-27] MEDS: ATORVASTATIN 20 MG TAB PO SCH (23:03)
--- NOTE | 2019-01-27 23:03 | NUR ---
no ss of distress pt still intubated, no ss of distress noted at this time. will continue to care for and monitor.
[2019-01-28] VITALS (102 sets, daily range): BP systolic 106–200; BP diastolic 66–105
--- NOTE | 2019-01-28 01:00 | NUR ---
sister alisa called pt sister alisa called, provided password and was given updated status of the pt. all questions and concerns addressed at this time.
--- NOTE | 2019-01-28 03:11 | NUR ---
hygiene bed bath given, full linen changed. pt tolerated care.
--- NOTE | 2019-01-28 05:17 | NUR ---
suction canisters changed tubing and suction canisters changed. pt vs are stable.
[2019-01-28] MEDS: InsuLIN REG 1unit/0.01ml Soln (100units/ml) SC SCH ×4 (05:37→18:22)
[2019-01-28] MEDS: ACCU-CHEK COMFORT CURVE STRIP VI SCH ×4 (05:37→18:22)
[2019-01-28] MEDS: SOD CHL 0.45% 1,000 ML IV SCH ×2 (05:37→16:10)
[2019-01-28] MEDS: METOCLOPRAMIDE HCL 5MG/ml INJ 2ml VIAL IV SCH ×3 (05:37→22:54)
--- NOTE | 2019-01-28 07:40 | NUR ---
OPENING Report received from Traci ZRAATE. Care initiated and initial assessment completed.
--- NOTE | 2019-01-28 07:50 | NUR ---
BEDSIDE Dr. Wei bedside assessing patient. No new orders received.
--- NOTE | 2019-01-28 08:30 | NUR ---
COPIOUS ORAL SECRETIONS Patients tongue and lips edematous with copious clear oral secretions. Suctioning frequently.
[2019-01-28] MEDS: ASPirin 81 mg TAB PO SCH (10:16)
[2019-01-28] MEDS: FAMOTIDINE (10MG/ML) 2ML VL IV SCH ×2 (10:16→22:54)
[2019-01-28] MEDS: CARVEDILOL 12.5 MG TAB PO SCH ×2 (10:17→22:53)
[2019-01-28] MEDS: amLODIPine BESYLATE 5 MG TAB PO SCH (10:17)
[2019-01-28] MEDS: LEVETIRACETAM INJ 1,000 MG in D5W 5% 100 ML IV SCH ×3 (10:18→22:54)
[2019-01-28] MEDS: hydrALAZINE HCL 20 MG/ML VL IV PRN (10:47)
--- NOTE | 2019-01-28 13:29 | NUR ---
FAMILY CALLED FOR UPDATE Spoke to Eladia over the phone, verified password, family wishes to complete terminal wean on Tuesday 01/30.
--- NOTE | 2019-01-28 14:00 | NUR ---
PARTIAL LINEN CHANGE
--- NOTE | 2019-01-28 18:50 | NUR ---
RT NOTE RECEIVED PT INTUBATED AND ON VENT V8 ON STATED SETTINGS. VENT IS PLUGGED TO RED OUTLET. ALARMS ARE ON AND AUDIBLE TO NURSING. AMBU BAG AT BEDSIDE AND CONNECTED TO O2 SOURCE. 8.0 ETT IS SECURED WITH ANCHORFAST AT 24 CM TO THE ORAL RIGHT. RT MOVED ETT TO THE ORAL LEFT. PT TONGUE IS EXTREMELY SWOLLEN AND HARD TO TOUCH. THERE IS AN ULCERATION ON THE RIGHT SIDE OF THE TONGUE, DAYSHIFT RN AWARE. BS ARE CLEAR. PT WAS SUCTIONED FOR SMALL RETURN FROM ETT AND LARGE RETURN ORALLY. CO2 MONITOR IN PLACE. CIRCUIT TEMP 33.9, etCO2 28 Addendum: 01/28/19 at 1926 by Angela Souza RT Amended: Links added.
--- NOTE | 2019-01-28 19:18 | NUR ---
OPEN Assumed care of female patient orally intubated no sedation. opens eyes when stimulated. Hypoactive cough and gag noted. Pupils both sluggishly reactive to light. respirations even and unlabored. large amount of oral secretions suctioned. pt is on icu monitors. L NGT, tube feeding held at this time due to feeding residual of 70ml. Heller catheter hanging below bladder, patent and draining yellow urine with sediment to gravity. r upper arm iv midline, l upper arm iv midline peripheral, all ivs flushed, patent and dressing is intact, iv sites appears asymptomatic at this time. open wound to the sacrum covered with optifoam dressing, flexiseal in place, skin around flexiseal appears reddened and irritated.zgaurd to sofiya area. Both legs with SCDs. all bony prominences off loaded with pillows for comfort and safety. full assessment in interventions. bed in lowest position, wheels locked, hob40*, pt is in full view of rn station, safety measures and seizure precautions in place. vs are stable at this time. will continue to care for and monitor.
--- NOTE | 2019-01-28 20:00 | NUR ---
RT NOTE ROUTINE VENT CHECK DONE. PT INTUBATED AND ON VENT V8 ON STATED SETTINGS. VENT IS PLUGGED TO RED OUTLET. ALARMS ARE ON AND AUDIBLE TO NURSING. AMBU BAG AT BEDSIDE AND CONNECTED TO O2 SOURCE. 8.0 ETT IS SECURED WITH ANCHORFAST AT 24 CM TO THE ORAL RIGHT. RT MOVED ETT TO THE ORAL LEFT. PT TONGUE IS EXTREMELY SWOLLEN AND HARD TO TOUCH. THERE IS AN ULCERATION ON THE RIGHT SIDE OF THE TONGUE, RN JUDY AWARE. CO2 MONITOR IN PLACE. CIRCUIT TEMP 34.1, etCO2 27 Addendum: 01/28/19 at 2037 by Angela Souza RT Amended: Links added.
--- NOTE | 2019-01-28 21:00 | NUR ---
feeding put on hold ngt feeding residual is 75 ml, feeding is being held. will recheck residual in 1 hr to determine restarting the feeding.
--- NOTE | 2019-01-28 22:26 | NUR ---
RT NOTE ROUTINE VENT CHECK DONE. PT INTUBATED AND ON VENT V8 ON STATED SETTINGS. VENT IS PLUGGED TO RED OUTLET. ALARMS ARE ON AND AUDIBLE TO NURSING. AMBU BAG AT BEDSIDE AND CONNECTED TO O2 SOURCE. 8.0 ETT IS SECURED WITH ANCHORFAST AT 24 CM TO THE ORAL RIGHT. PT TONGUE IS HARD AND DRY TO TOUCH. CO2 MONITOR IN PLACE. CIRCUIT TEMP 34.1, etCO2 28 Addendum: 01/28/19 at 2331 by Angela Souza RT Amended: Links added.
[2019-01-28] MEDS: ATORVASTATIN 20 MG TAB PO SCH (22:54)
--- NOTE | 2019-01-28 23:10 | NUR ---
no ss of distress pt still intubated, no ss of distress noted at this time. will continue to care for and monitor.
[2019-01-29] VITALS (80 sets, daily range): BP systolic 82–183; BP diastolic 50–104
[2019-01-29] MEDS: ACCU-CHEK COMFORT CURVE STRIP VI SCH ×5 (00:14→23:51)
--- NOTE | 2019-01-29 00:29 | NUR ---
RT NOTE ROUTINE VENT CHECK DONE. PT INTUBATED AND ON VENT V8 ON STATED SETTINGS. VENT IS PLUGGED TO RED OUTLET. ALARMS ARE ON AND AUDIBLE TO NURSING. AMBU BAG AT BEDSIDE AND CONNECTED TO O2 SOURCE. 8.0 ETT IS SECURED WITH ANCHORFAST AT 24 CM TO THE ORAL RIGHT. PT TONGUE IS HARD AND DRY TO TOUCH. CO2 MONITOR IN PLACE. CIRCUIT TEMP 34.0, etCO2 28 Addendum: 01/29/19 at 0039 by Angela Souza RT Amended: Links added.
--- NOTE | 2019-01-29 00:57 | NUR ---
bs/ insulin given after checking the bs it was determined that insulin was needed. insulin was given using the prescribed bs insulin protocol.
[2019-01-29] MEDS: SOD CHL 0.45% 1,000 ML IV SCH ×3 (02:30→21:41)
--- NOTE | 2019-01-29 02:30 | NUR ---
RT NOTE ROUTINE VENT CHECK DONE. PT INTUBATED AND ON VENT V8 ON STATED SETTINGS. VENT IS PLUGGED TO RED OUTLET. ALARMS ARE ON AND AUDIBLE TO NURSING. AMBU BAG AT BEDSIDE AND CONNECTED TO O2 SOURCE. 8.0 ETT IS SECURED WITH ANCHORFAST AT 24 CM TO THE ORAL RIGHT. PT TONGUE IS HARD AND DRY TO TOUCH. PT SUCTIONED FOR MODERATE ORAL RETURN, SCANT FROM ETT. CO2 MONITOR IN PLACE. CIRCUIT TEMP 34.0, etCO2 24 Addendum: 01/29/19 at 0245 by Angela Souza RT Amended: Links added.
--- NOTE | 2019-01-29 04:14 | NUR ---
RT NOTE ROUTINE VENT CHECK DONE. PT INTUBATED AND ON VENT V8 ON STATED SETTINGS. VENT IS PLUGGED TO RED OUTLET. ALARMS ARE ON AND AUDIBLE TO NURSING. AMBU BAG AT BEDSIDE AND CONNECTED TO O2 SOURCE. 8.0 ETT IS SECURED WITH ANCHORFAST AT 24 CM TO THE ORAL RIGHT. PT TONGUE IS HARD AND DRY TO TOUCH. PT SUCTIONED FOR MODERATE ORAL RETURN, SCANT FROM ETT. WATER LEVEL ADEQUATE FOR HUMIDIFIER. INLINE SUCTION CHANGED WITHOUT INCIDENT. CO2 MONITOR IN PLACE. CIRCUIT TEMP 34.0, etCO2 25 Addendum: 01/29/19 at 0439 by Angela Souza RT Amended: Links added.
[2019-01-29] MEDS: InsuLIN REG 1unit/0.01ml Soln (100units/ml) SC SCH ×5 (06:00→23:51)
[2019-01-29] MEDS: METOCLOPRAMIDE HCL 5MG/ml INJ 2ml VIAL IV SCH ×3 (06:00→21:40)
--- NOTE | 2019-01-29 06:31 | NUR ---
bs/ insulin given after checking the bs it was determined that insulin was needed. insulin was given using the prescribed bs insulin protocol.
[2019-01-29] MEDS: hydrALAZINE HCL 20 MG/ML VL IV PRN (06:44)
--- NOTE | 2019-01-29 07:45 | NUR ---
OPENING Report received from NOC ELLIOT Aviles. Care initiated and initial assessment completed.
[2019-01-29] MEDS: CARVEDILOL 12.5 MG TAB PO SCH ×2 (10:00→22:00)
--- NOTE | 2019-01-29 10:00 | NUR ---
TEMPERATURE Difficulty getting oral or axiliary temperature. Putting blankets on patient in order for probe to be able to read.
--- NOTE | 2019-01-29 10:30 | NUR ---
TEMPERATURE Thermometer still not reading. Will put in rectal temperature.
--- NOTE | 2019-01-29 11:00 | NUR ---
RECTAL PROBE PLACED Placed rectal probe, patients rectal temperature 90.3 degrees Fahrenheit. Initiating warming interventions.
--- NOTE | 2019-01-29 11:10 | NUR ---
WARMING MEASURES Patient has warmer and blankets on. Rectal probe in place for constant assessment.
[2019-01-29] MEDS: LEVETIRACETAM INJ 1,000 MG in D5W 5% 100 ML IV SCH ×2 (11:32→22:00)
[2019-01-29] MEDS: FAMOTIDINE (10MG/ML) 2ML VL IV SCH ×2 (11:32→21:40)
[2019-01-29] MEDS: ASPirin 81 mg TAB PO SCH (11:32)
[2019-01-29] MEDS: amLODIPine BESYLATE 5 MG TAB PO SCH (11:33)
--- NOTE | 2019-01-29 12:35 | NUR ---
BLOOD SUGAR Blood sugar 145, medication given per protocol.
--- NOTE | 2019-01-29 14:20 | NUR ---
Nutrition Follow-up Notes Wt.: 89.6 kg today. Pt's intubated, non-sedated, no immediate family member at bedside when rounded this morning. Pt remains NPO with EN support temporarily held d/t high residuals, per nursing. Pt's previously on Glucerna 1.2 Bjorn @ 20 ml/hr providing 576 kcal, 29 gms pro and 386 ml free water. Est. Needs: 1850 kcal to 2250 kcal (25-30 kcal/kgBW), 59 gms to 74 gms pro (0.8-1.0 gms/kgBW). Will continue to monitor pertinent labs and reassess nutrient need prn Labs: Gluc 176 H; 01/27/19 Gluc 175 H, Na 135 L, BUN 31 H, Cr 2.18 H, Ca 11.3 H; Tpro 5.6 L, Alb 1.8 L, AST 61 H Skin: Ulises scale 13, mod risk, pt's proximal sacrum DTI per documentation billing clerk. Pls refer to latest rehab specialist's notes for further details re:tx plans. GI: Pt had 2x BM 01/15/19, had 100 gastric drainage output this morning per documentation billing clerk. PES: Increased nutrient needs r/t acute/chronic medical condition aeb intubated, NPO with EN support. Altered nutrition related lab values r/t current/chronic medical condition aeb hyperglycemia, elev. renal labs, hypercalcemia Will continue to monitor NPO status, skin status, pertinent labs and weight trend. F/u in 2 to 3 days. Rec.: 1.) If still NPO, consider to resume with EN support at lower rate and gradually increase feeding rate with Glucerna 1.2 Bjorn to 70 ml/hr goal rate as tolerated when medically appropriate. 2.) If pt's unable to tolerate Glucerna 1.2 Bjorn >40 ml/hr, consider change EN formula to Vital AF 1.2 Bjorn @ 60 ml/hr goal rate as tolerated if medically appropriate. 3.) If Albumin continues trending down with improved renal labs, consider Prostat 1 pkt BID. 4.) Consider daily MVI with minerals and Asc acid 500 mgs BID prn. 5.) Advance gradually to oral diet when medically appropriate. 6.) Refer pt to CDE/RD for further nutrition education and weight monitoring upon discharge. 7.) Continue current plan of care.
--- NOTE | 2019-01-29 14:30 | NUR ---
ADDITIONAL WARMING MEASURES Connected IV fluids infusion to warmer.
--- NOTE | 2019-01-29 17:59 | NUR ---
WARMING MEASURES Still in place. Patient 96.4 at this time.
--- NOTE | 2019-01-29 20:00 | NUR ---
OPEN ASSUMED CARE OF FEMALE PT ORALLY INTUBATED. PT ON NO SEDATION. PT OPENS EYES TO TACTILE STIMULI. DOES NOT TRACK. UNABLE TO FOLLOW COMMANDS. COUGH AND GAG HYPOACTIVE. SR ON DRAWER WAXER WITH 1ST DEGREE HB. OGT IN PLACE CLAMPED. PLACEMENT VERIFIED. R & L UPPER ARM MIDLINES IN PLACE. B&P. LOVE TO GRAVITY DRAINING CLEAR LIGHT [place] URINE. FLEXI-SEAL TO GRAVITY DRAINING LOOSE BROWN STOOL. REDNESS AND SOME DISCHARGE OBSERVED FROM RECTUM. SKIN TEAR TO SACRUM WITH OPTIFOAM GENTLE SACRAL DRESSING IN PLACE. PT IS ON SPECIALTY AIR MATTRESS. PILLOWS USED TO OFFLOAD BONY PROMINENCES. VANDANA SCD'S IN PLACE. NO INDICATION OF PAIN OBSERVED. BED IN LOWEST LOCKED POSITION. HOB ELEVATED 30 DEGREES. PT IN FULL VIEW OF RN STATION. WILL CONTINUE TO MONITOR.
[2019-01-29] MEDS: ATORVASTATIN 20 MG TAB PO SCH (21:41)
--- NOTE | 2019-01-29 23:00 | NUR ---
FAMILY CALL PT SISTER CALLED UNIT FOR UPDATE ON PT CONDITION. AFTER PASSWORD FOR PHONE GIVEN, UPDATE PROVIDED.
[2019-01-30] VITALS (36 sets, daily range): BP systolic 110–171; BP diastolic 67–101
--- NOTE | 2019-01-30 03:30 | NUR ---
Patient bathe/linen change Patient given complete bath. Skin integrity assessed for any changes. Linens changed. Patient repositioned for comfort.
[2019-01-30 04:20] LABS: Albumin 1.5 g/dL (3.4-5.0); Calcium 11.2 mg/dL (8.5-10.1); Potassium 3.9 mmol/L (3.5-5.1)
[2019-01-30 04:24] LABS: BUN/Creatinine Ratio 14.6; Bilirubin, Total 0.2 mg/dL (0.2-1.0); Total Protein 5.6 g/dL (6.4-8.2)
[2019-01-30] MEDS: InsuLIN REG 1unit/0.01ml Soln (100units/ml) SC SCH ×4 (06:00→23:18)
[2019-01-30] MEDS: METOCLOPRAMIDE HCL 5MG/ml INJ 2ml VIAL IV SCH ×3 (06:12→22:09)
[2019-01-30] MEDS: ACCU-CHEK COMFORT CURVE STRIP VI SCH ×4 (06:12→23:17)
--- NOTE | 2019-01-30 07:02 | NUR ---
Respiratory note: RECEIVED PATIENT ON V8 CARESCAPE VENT ORALLY INTUBATED WITH AN 8.0 ETT SECURED VIA DAMION AT THE 24CM MARKING AT THE LIP, AND MECHANICALLY VENTILATED WITH THE CHARTED SETTINGS. SPO2 100%, LUNG SOUNDS CLEAR/DIM T/O, NO SECRETIONS WHEN SUCTIONED. SKIN IS WARM/DRY TO THE TOUCH AND IS INTACT NEAR DAMION SITE. THERE IS AN NGT PLACED IN THE LEFT NARE AND IS SECURED TO THE NOSE. PITTING EDEMA NOTED IN BILATERAL UPPER EXTREMITIES, WELL THE BILATERAL LOWER EXTREMITIES. NO NEW AM CXR TO ASSESS. PATIENT IS UNRESPONSIVE TO BOTH VERBAL/TACTILE STIMULI AND IS OFF ALL SEDATION. SHE IS RESTING COMFORTABLY AND TOLERATING VENT WELL, NO CHANGES MADE. VENT PLUGGED INTO RED OUTLET AND ALL ALARMS ARE SET AND AUDIBLE. WILL CONTINUE TO ASSESS PATIENT WELL VENTILATOR FUNCTION. [employer] INLINE.
--- NOTE | 2019-01-30 08:00 | NUR ---
OPENING NOTE Received patient on mechanical ventilator with no sedation, opens eyes to tactile stimuli, does not tract/sustain eye contact, unable to follow simple commands, positive gag/cough reflex. Sinus rhythm in the 70's on desk monitor, pulses palpable on upper/lower extremities with generalized edema observed. OG tube checked and verified via air bolus: clamped. Abdomen firm, distended, non tender with bowel sounds present in all quadrants: flexiseal inplace and draining brown stool. Heller catheter draining to gravity clear yellow urine. Bilateral midlines to upper arms: good blood return and flushes easily infusing 0.45 NORMAL SALINE at 100ml/hr.Redness and some discharge observed around rectum. Skin tear to the sacrum with Optifoam dressing clean, dry and intact. SCD's on. Call light within reach and bed at lowest position. Will continue to monitor patient closely.
--- NOTE | 2019-01-30 09:30 | NUR ---
FAMILY Received phone call from niece, correct password provided, updated on patient condition.
[2019-01-30] MEDS: amLODIPine BESYLATE 5 MG TAB PO SCH (10:00)
[2019-01-30] MEDS: CARVEDILOL 12.5 MG TAB PO SCH ×2 (10:00→21:33)
[2019-01-30] MEDS: LEVETIRACETAM INJ 1,000 MG in D5W 5% 100 ML IV SCH ×2 (10:18→21:34)
[2019-01-30] MEDS: ASPirin 81 mg TAB PO SCH (10:18)
[2019-01-30] MEDS: FAMOTIDINE (10MG/ML) 2ML VL IV SCH ×2 (10:18→21:34)
[2019-01-30] MEDS: SOD CHL 0.45% 1,000 ML IV SCH (15:00)
--- NOTE | 2019-01-30 16:00 | NUR ---
MD Dr. Akins at bedside updated on patient condition with no new orders. aware that we are waiting on family to terminal wean per nursing report. Will continue to monitor patient closely.
--- NOTE | 2019-01-30 19:30 | NUR ---
Initial Assessment Patient received laying on bed on mechanical ventilation and no sedation. patient does not have any purposeful movements, does not track or follow commands. PERRL intact 3 and sluggish, hypoactive cough/gag noted. HOB elevated greater than 30 degrees. ETT secured with [place], ventilator plugged into red outlet, ambu bag at bedside, oral care and suction rendered. Copious oral secretions noted; tongue is protruding and dry-moisturized. Lnare NGT clamped. RN verified proper placement via auscultation with air bolus. R/L upper arm mid-lines intact and patent with dressings CDI. Abd soft and slightly puffy. Rectal tube intact draining liquid/brown stool to gravity, F/C intact and draining light [place] urine to gravity, SCD's intact to BLE. Neurovascular status intact with palpable distal pulses x4 extremities, skin warm to touch, capillary refill brisk. On specialty air mattress. Seizure precautions are intact. Bed in lowest position, side rails up, bed brakes set, all alarms audible, in direct view of nurses station. Continue close monitoring.
--- NOTE | 2019-01-30 20:00 | NUR ---
Tube feeding Order to start Glucerna tube feeding with goal rate of 30ml/hour. NGT placement verified by RN. Tube feeding initiated at 10ml/hour. HOB elevated greater than 30 degrees. Will monitor residuals per protocol.
[2019-01-30] MEDS: hydrALAZINE HCL 20 MG/ML VL IV PRN (20:39)
--- NOTE | 2019-01-30 20:39 | NUR ---
Blood pressure management Systolic blood pressure sustaining greater than 160mmhg. Hydralazine administered per MD order. Patient tolerated well.
[2019-01-30] MEDS: ATORVASTATIN 20 MG TAB PO SCH (21:33)
[2019-01-31] VITALS (33 sets, daily range): BP systolic 121–161; BP diastolic 72–98
--- NOTE | 2019-01-31 | NUR ---
Tube feeding Residual checked and it is 10ml. Tube feedings increased to 20ml/hour. HOB remains elevated. Abd soft.
--- NOTE | 2019-01-31 02:00 | NUR ---
Bed bath Patient given complete CHG bath, all linens and gown changed. Optifoam gentle adhesive dressing changed, barrier cream applied. Patient tolerated well. Skin re-assessed for any changes and none noted.
--- NOTE | 2019-01-31 04:00 | NUR ---
Tube feeding Residual checked and it is 100ml. Tube feedings remain at 20ml/hour. HOB remains elevated. Abd soft.
[2019-01-31] MEDS: hydrALAZINE HCL 20 MG/ML VL IV PRN (04:20)
--- NOTE | 2019-01-31 04:20 | NUR ---
Blood pressure management Systolic blood pressure sustaining greater than 160mmhg. Hydralazine administered per MD order. Patient tolerated well.
[2019-01-31 04:35] LABS: Potassium 3.9 mmol/L (3.5-5.1)
[2019-01-31 04:44] LABS: Albumin 1.6 g/dL (3.4-5.0); BUN/Creatinine Ratio 14.1; Bilirubin, Total 0.2 mg/dL (0.2-1.0); Calcium 11.6 mg/dL (8.5-10.1); Total Protein 6.2 g/dL (6.4-8.2)
[2019-01-31] MEDS: METOCLOPRAMIDE HCL 5MG/ml INJ 2ml VIAL IV SCH ×2 (05:14→14:00)
[2019-01-31] MEDS: SOD CHL 0.45% 1,000 ML IV SCH ×3 (05:14→15:00)
[2019-01-31] MEDS: InsuLIN REG 1unit/0.01ml Soln (100units/ml) SC SCH ×3 (06:06→18:00)
[2019-01-31] MEDS: ACCU-CHEK COMFORT CURVE STRIP VI SCH ×3 (06:06→18:00)
--- NOTE | 2019-01-31 07:00 | NUR ---
Report given No changes or incidents to report, all vitals stable. Care endorsed to day shift RN.
--- NOTE | 2019-01-31 07:45 | NUR ---
PHONE CALL Received phone call from patients friend from [facility] about patient status, unable to provided updated secondary to not having password.
--- NOTE | 2019-01-31 08:00 | NUR ---
OPENING NOTE Received patient on mechanical ventilator with no sedation, opens eyes to tactile stimuli, does not tract/sustain eye contact, unable to follow simple commands, positive gag/cough reflex. Sinus rhythm in the 70's on monitoring specialist, pulses palpable on upper/lower extremities with generalized edema observed. OG tube checked and verified via air bolus: infusing tube feedings at 10ml/hr with 100ml of residuals aspirated. Abdomen firm, distended, non tender with bowel sounds present in all quadrants: flexiseal in place and draining brown stool. Heller catheter draining to gravity clear yellow urine. Bilateral midlines to upper arms: good blood return and flushes easily infusing 0.45 NORMAL SALINE at 100ml/hr.Redness and some discharge observed around rectum. Skin tear to the sacrum with Optifoam dressing clean, dry and intact. SCD's on. Call light within reach and bed at lowest position. Will continue to monitor patient closely.
[2019-01-31] MEDS: FAMOTIDINE (10MG/ML) 2ML VL IV SCH (10:33)
[2019-01-31] MEDS: ASPirin 81 mg TAB PO SCH (10:33)
[2019-01-31] MEDS: LEVETIRACETAM INJ 1,000 MG in D5W 5% 100 ML IV SCH (10:33)
[2019-01-31] MEDS: amLODIPine BESYLATE 5 MG TAB PO SCH (10:34)
[2019-01-31] MEDS: CARVEDILOL 12.5 MG TAB PO SCH (10:34)
--- NOTE | 2019-01-31 11:30 | NUR ---
PHONE CALL Received phone call from patients aunt, password provided and updated given.
--- NOTE | 2019-01-31 11:32 | NUR ---
Nutrition Follow-up Notes Wt.: 92.0 kg. Pt's intubated, non-sedated, no immediate family member at bedside when rounded this morning. Pt remains NPO with EN support with Glucerna 1.2 Bjorn @ 20 ml/hr providing 576 kcal, 29 gms pro and 386 ml free water. Est. Needs: 1850 kcal to 2250 kcal (25-30 kcal/kgBW), 59 gms to 74 gms pro (0.8-1.0 gms/kgBW). Will continue to monitor pertinent labs and reassess nutrient need prn Labs: BUN 31 H, CREAT 2.2 H, CA 11.6 H, ALB 1.6 L, GLU 159 H Skin: Ulises scale 9, high risk, pt's proximal sacrum DTI per steel chipper. Pls refer to latest pharmacy intake coordinator's notes for further details re:tx plans. GI: Pt had 50 ml BM on 01/30 per steel chipper. PES: Increased nutrient needs r/t acute/chronic medical condition aeb intubated, NPO with EN support. Altered nutrition related lab values r/t current/chronic medical condition aeb hyperglycemia, elev. renal labs, hypercalcemia Will continue to monitor NPO status, EN tolerance, skin status, pertinent labs and weight trend. F/u in 2 to 3 days. Rec.: 1.) Gradually increase feeding rate with Glucerna 1.2 Bjorn to 70 ml/hr goal rate as tolerated when medically appropriate. 2.) If pt's unable to tolerate Glucerna 1.2 Bjorn >40 ml/hr, consider change EN formula to Vital AF 1.2 Bjorn @ 60 ml/hr goal rate as tolerated if medically appropriate. 3.) If Albumin continues trending down with improved renal labs, consider Prostat 1 pkt BID. 4.) Consider daily MVI with minerals and Asc acid 500 mgs BID prn. 5.) Advance gradually to oral diet when medically appropriate. 6.) Refer pt to CDE/RD for further nutrition education and weight monitoring upon discharge. 7.) Continue current plan of care.
--- NOTE | 2019-01-31 12:00 | NUR ---
NUTRITION Left NG tube checked and verified via air bolus: aspirated 50ml will keep tube feedings infusing at 10ml/hr.
--- NOTE | 2019-01-31 12:27 | NUR ---
WOUND CARE NOTE: Wound care in to see patient for reevaluation of wounds. Patient continue resting on air bed in ICU Rm. 112. Patient remain intubated and mechanically ventilated. Patient appears to be in no pain using Rodriguez Meeks Faces Pain Scale. Her Ulises score is 9. Skin/wound assessment done with the assistance of patient's nurse, ELLIOT Shin. Patient's sacral pressure injury continue to evolve. Wound measuring 4.5x4cm. Wound bed is red, with pale pink area, periwound is dark red, minimal serous drainage noted. Patient has rectal tube in placed with liquid stools in tubing and in bag. She developed skin erosion, moisture associated skin damage to perirectal area. Wendy care given, cleansed wounds, photograph taken for reference and changed the dressing as ordered. Patient is on tube feeding and Dietary is on board. Repositioned patient for comfort, redistributed pressure points with pillows. ELLIOT Shin reported mucosal pressure injury. Noted brown are on patient's tongue. Bedside nurse reported that R.T. is aware and routinely moving ET tube positioning. RECOMMENDATIONS: Continuation of all wound care orders prescribed by MD, continue with skin/wound plan of care, continue monitoring by wound care while patient is hospitalized. Addendum: 01/31/19 at 1622 by Kathy Quintana RN Amended: Links added.
--- NOTE | 2019-01-31 15:55 | NUR ---
FAMILY Patients son Tyler at bedside updated on patient condition. Answered all of Tyler's questions regarding terminal wean and after life. Tyler would like to terminal wean patient today. Will continue to monitor patient closely.
--- NOTE | 2019-01-31 16:15 | NUR ---
NUTRITION Tube feeding turned off at this time per son request will be terminal weaning patient later this evening.
--- NOTE | 2019-01-31 16:26 | NUR ---
Left message for Dr. Akins regarding for order for terminal wean and comfort measures, waiting for orders from .
--- NOTE | 2019-01-31 17:00 | NUR ---
MD Dr. Cloud in unit and was able to give order for terminal wean/compassion extubation and comfort measures.
[2019-01-31] MEDS ORDERED: LORazepam 2MG/ML-1ML VIAL IV PRN (17:45)
--- NOTE | 2019-01-31 18:10 | NUR ---
COMPASSIONATE EXTUBATION Compassionate extubation performed at this time by RT per MD orders. Will continue to monitor patient.
[2019-01-31] MEDS: MORPHINE SULF INJ 2 MG/ML SYRINGE 1ML IV PRN ×2 (18:16→23:36)
--- NOTE | 2019-01-31 20:00 | NUR ---
OPEN NOTES Patient was terminally weaned today.Family at bedside. Patient open eyes for awhile when turned but did not sustain it. No limb movements noted. On room air saturating 84-87%. Suctioned orally moderate amount of secretions. Propped up in bed. Full assessment done -refer interventions. Patient is with Heller catheter draining to yellowish output and has Flexiseal tube with brownish output. will continue to monitor
--- NOTE | 2019-01-31 21:49 | NUR ---
FAMILY WENT HOME INFORMED OF THE POSSIBLE DOWNGRADE AND BE TRANSFERRED TO A REGULAR ROOM TONIGHT VERBALIZED UNDERSTANDING AND ASK TO BE CALLED WHEN PATIENT IS TRANSFERRED/IF ANYTHING CHANGES FOR TONIGHT
--- NOTE | 2019-01-31 21:50 | NUR ---
PERSONAL BELONGINGS Patient's bible,stuffed toy and card was taken by patient's son Tyler. He is asking for the clothes but no clothes seen at bedside
--- NOTE | 2019-01-31 21:55 | NUR ---
PAGED DR. RODGERS FOR DOWNGRADE ORDERS
--- NOTE | 2019-01-31 23:10 | NUR ---
DOWNGRADE ORDERS RECEIVED FROM DR. RODGERS Addendum: 01/31/19 at 2344 by Chaya Santa RN TRANSFER ORDERS RECEIVED AT [id number]
--- NOTE | 2019-01-31 23:20 | NUR ---
FAMILY CALLED PATIENT'S SISTER CHUCHO CALLED. CORRECT PASSWORD OBTAINED. UPDATED HER OF PATIENT'S CONDITION. INFORMED HER THAT THERE IS A DOWNGRADE RIGHT NOW AND THE ROOM SHE GONNA BE TRANSFERRED AT IS ROOM 236. ASKED HER SHE CAN RELY THE MESSAGE TO THE SON WELL - SHE SAID YES. ALL QUESTIONS ANSWERED.
--- NOTE | 2019-01-31 23:30 | NUR ---
PATIENT CLEANED,PARTIAL LINE CHANGED DONE
--- NOTE | 2019-01-31 23:54 | NUR ---
REPORT REPORT GIVEN TO ELLIOT ESCOBAR
[2019-02-01] VITALS: BP 162/92
--- NOTE | 2019-02-01 00:20 | NUR ---
TRANSFERRED PATIENT TO [facility] SURG FLOOR CARE ENDORSED TO ELLIOT ESCOBAR
--- NOTE | 2019-02-01 00:29 | NUR ---
Med surg transfer received patient from icu nurse. Assumed care of patient. Patient is alert, and orientated x 0. pt exhibit no spontaneous eye movement nor has the patient spoken. Pt withdrawal from pain, but doesn't obey command. No S/S of distress/SOB or pain. Patient is in private room. Flexiseal is in place and draining. Heller catheter is in place and draining below bladder. Bed is in lowest position with side rails up x 2. Bed brakes are locked and call light is with in reach. HOB is 30 degrees.
[2019-02-01 05:00] VITALS: BP 176/93
[2019-02-01 05:46] LABS: Albumin 1.5 g/dL (3.4-5.0); Calcium 11.8 mg/dL (8.5-10.1); Potassium 3.8 mmol/L (3.5-5.1)
[2019-02-01 05:51] LABS: BUN/Creatinine Ratio 13.7; Bilirubin, Total 0.2 mg/dL (0.2-1.0); Total Protein 6.4 g/dL (6.4-8.2)
--- NOTE | 2019-02-01 07:30 | NUR ---
Opening Shift Note Assuming care of patient at this time. Patient is resting in bed. Patient's eyes are open but patient does not track or follow commands. Breathing is even and unlabored at this time. Patient's tongue appears to be swollen, patient suctioned at this time. Patient's family has been calling regarding status updates. Will continue to round hourly and as needed.
[2019-02-01 09:00] VITALS: BP 141/79
[2019-02-01 13:00] VITALS: BP 147/92
--- NOTE | 2019-02-01 15:30 | NUR ---
Family at bedside Son and friend at bedside at this time. Son is washing patient's feet and applying nail ukrainian.
[2019-02-01] MEDS: MORPHINE SULF INJ 2 MG/ML SYRINGE 1ML IV PRN ×4 (15:34→23:55)
--- NOTE | 2019-02-01 16:11 | NUR ---
Request change of next of kin Son, Tyler, wants to be put in as next of kin. Tyler Son is also requesting information on power of managing attorney. Page to Ayala, at this time. Awaiting callback.
--- NOTE | 2019-02-01 16:23 | NUR ---
Neuro Dr. Wei is signing off from a neuro standpoint. Patient is comfort care and will no longer need to be followed by him.
[2019-02-01 17:00] VITALS: BP 131/86
--- NOTE | 2019-02-01 17:00 | NUR ---
Family no longer at bedside Son has left the bedside at this time. Son states that he will be heading back to [place] and he hopes to see patient next week.
--- NOTE | 2019-02-01 19:29 | NUR ---
Closing Shift Note Patient resting in bed. Respirations are at 35 breaths per minute. Oxygen saturation is 88% on 2L nasal cannula. Report given. Will endorse care to the night supervisor RN.
--- NOTE | 2019-02-01 19:36 | NUR ---
Opening Shift Note Received report and assumed care of patient. Alert and oriented X 0/unresponsive, bedrest, and pain level unable to be assessed. Bed locked in lowest position, side rails up x2, and call light within reach. Midlines present in RUE and LUE IID inserted on 01/26/19. Heller inserted on 01/11/19 for prolonged immobilization and strict I/O. Rectal tube in place for incontinence and skin protection. Skin: sacral wound present: optifoam dressing CDI; tongue is swollen and hard. Will continue to monitor. .
[2019-02-01 21:54] VITALS: BP 130/77
[2019-02-02] MEDS: MORPHINE SULF INJ 2 MG/ML SYRINGE 1ML IV PRN (00:58)
--- NOTE | 2019-02-02 06:41 | NUR ---
Timeline of actions for patient : 242: Time of 0255: Call made to [facility] 0250: Page to construction project coordinator hospitalist to pronounce the body 0310: Body pronounced by Eliel Baca NP 0330: Family called (Son did not answer, message was left) 0335: Rubbish Collector called 0350: Return call from [employer] 0411: Son called again (message left) 0420: Son returned call 0430: Body cleaned, all tubing removed, placed in body bag with appropriate tags on left great toe, outside the bag and 3rd tag placed in patients chart (no belongings) 0620: Call made to [employer] [facility] [facility] [phone] 0641: Call made to [employer] (2nd time) to arrange for body pickup
== END 2019-02-02 02:43 | disposition expired | DRG 870 ==
LOC: EDBD 17:45 → ER 18:00 → TELE 18:01 → ICU WEST 01-12 07:19 → TELE-EAST 02-01 00:35 → EAST 02-01 00:42
PROVIDERS: ADMIT Internal Medicine; ATTEND Internal Medicine
PROC: 5A1955Z Respiratory Ventilation, Greater than 96 Consecutive Hours (ICD-10-PCS; principal; 2019-01-12)
PROC: 0BH17EZ Insertion of Endotracheal Airway into Trachea, Via Natural or Artificial Opening (ICD-10-PCS; 2019-01-12)
DX: A41.9 Sepsis, unspecified organism (principal); J69.0 Pneumonitis due to inhalation of food and vomit; J96.01 Acute respiratory failure with hypoxia; G93.41 Metabolic encephalopathy; N17.0 Acute kidney failure with tubular necrosis; R65.21 Severe sepsis with septic shock; G93.6 Cerebral edema; G93.1 Anoxic brain damage, not elsewhere classified; E87.3 Alkalosis; G40.901 Epilepsy, unspecified, not intractable, with status epilepticus; E03.9 Hypothyroidism, unspecified; E11.649 Type 2 diabetes mellitus with hypoglycemia without coma; E78.5 Hyperlipidemia, unspecified; J40 Bronchitis, not specified as acute or chronic; K21.9 Gastro-esophageal reflux disease without esophagitis; Z86.73 Personal history of transient ischemic attack (TIA), and cerebral infarction without residual deficits; D64.9 Anemia, unspecified; E11.22 Type 2 diabetes mellitus with diabetic chronic kidney disease; E21.3 Hyperparathyroidism, unspecified; E55.9 Vitamin D deficiency, unspecified; E87.6 Hypokalemia; N18.3 Chronic kidney disease, stage 3 (moderate); Z51.5 Encounter for palliative care; Z66 Do not resuscitate; E11.65 Type 2 diabetes mellitus with hyperglycemia; I12.9 Hypertensive chronic kidney disease with stage 1 through stage 4 chronic kidney disease, or unspecified chronic kidney disease; Z79.82 Long term (current) use of aspirin; Z79.84 Long term (current) use of oral hypoglycemic drugs; Z79.899 Other long term (current) drug therapy; Z82.3 Family history of stroke; Z82.5 Family history of asthma and other chronic lower respiratory diseases; Z83.3 Family history of diabetes mellitus
CPT/HCPCS: 31500; 36415; 36600; 51702; 70450; 71045; 76775; 80048; 80053; 80202; 80307; 81001; 82043; 82306; 82570; 82784; 82805; 82962; 83735; 83970; 84100; 84132; 84156; 84300; 85025; 86334; 86335; 86703; 87070; 87081; 87205; 87493; 87804; 93005; 93306; 94002; 94003; 94640; 94761; 95819; 96365; 96367; 96375; 99291; A4618; G0378; J0330; J0696; J1815; J2001; J2543; J3480; J3490; J7060